=== PATIENT | female | born 1980 | race Caucasian/White ===

== ENCOUNTER 2018-02-21 11:13 | Emergency (ER) | payer BC, OTHER, SELFPAY ==
[2018-02-21] MEDS ORDERED: TETANUS & DIPHTHERIA TOX,ADULT 0.5 ML VIAL ONE (12:12)
--- NOTE | 2018-02-21 12:40 | ER ---
Nurse's Notes [facility] Name: Jaquelin Lomax Age: 37 yrs Sex: Female : 1980 Arrival Date: 02/21/2018 Time: 11:15 Bed 23 Private MD: None, None Diagnosis: Bitten by dog-Left Hand Presentation: 02/21 11:25 Presenting complaint: Patient states: dog bite to the left hand today while at work. sv Transition of care: patient was not received from another setting of care. Onset of symptoms was February 21, 2018. Care prior to arrival: None. 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 sv Dog name is Uche. 11:33 Note Animal control called and stated they would have someone up here. sv 12:00 Risk Assessment: Do you want to hurt yourself or someone else? Patient reports no ss desire to harm self or others. Initial Sepsis Screen: Does the patient meet any 2 criteria? No. Patient's initial sepsis screen is negative. Does the patient have a suspected source of infection? No. Patient's initial sepsis screen is negative. Triage Assessment: 11:29 Bite description: bite sustained to left hand is from animal, was sustained less than sv 30 minutes ago. by a dog, black mouth Cur, animal information: vaccination(s) is unknown. General: Appears in no apparent distress. uncomfortable, Behavior is calm, cooperative. Pain: Complains of pain in left hand Pain currently is 4 out of 10 on a pain scale. Neuro: Level of Consciousness is awake, alert, obeys commands, Oriented to person, place, time, situation, Moves all extremities. Full function Gait is steady. Respiratory: Respiratory effort is even, unlabored, Respiratory pattern is regular, symmetrical. Derm: Skin is normal. 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 - Social history:: Smoking status: Patient uses tobacco products, smokes one pack cigarettes per day. - Ebola Screening: : No symptoms or risks identified at this time. Screenin:00 Abuse screen: Denies threats or abuse. Denies injuries from another. Nutritional ss screening: No deficits noted. Tuberculosis screening: Never had TB. Fall Risk None identified. Assessment: 12:00 General: Appears in no apparent distress. comfortable, Behavior is calm, cooperative, ss Denies fever, feeling ill, fatigue, chills. Pain: Complains of pain in dorsum of left hand Pain currently is 5 out of 10 on a pain scale. Quality of pain is described as aching, tender, Pain began 1 hour ago. Is continuous. Neuro: Level of Consciousness is awake, alert, obeys commands, Oriented to person, place, time, situation. Cardiovascular: Capillary refill < 3 seconds is brisk in bilateral fingers. Respiratory: Airway is patent Trachea midline Respiratory effort is even, unlabored, Respiratory pattern is regular, symmetrical. GI: No signs and/or symptoms were reported involving the gastrointestinal system. : No signs and/or symptoms were reported regarding the genitourinary system. EENT: Eyes Oral mucosa is moist. Throat is clear. Derm: Skin is intact, is healthy with good turgor, Skin is dry, Skin is pink, warm \T\ dry. normal. Derm: Bruising that is dark purple, on dorsum of left hand. Musculoskeletal: Range of motion: intact in all extremities, Swelling present in dorsum of left hand. Injury Description: Laceration sustained to dorsum of left hand is 0.5 to 2.5 cm long, was sustained 30-60 minutes ago. no active bleeding noted at this time. Vital Signs: 11:26 BP 173 / 95; Pulse 76; Resp 18; Temp 97.7; Pulse Ox 99% ; Weight 90.72 kg; Height 5 ft. sv 5 in. (165.10 cm); Pain 4/10; 11:26 Body Mass Index 33.28 (90.72 kg, 165.10 cm) sv ED Course: 11:15 Patient arrived in ED. sb2 11:15 None, None is Private Physician. sb2 11:25 Triage completed. sv 11:26 Arm band placed on. sv 11:48 Sriram Puga PA is PHCP. cp 11:48 Sriram Alvarez MD is Attending Physician. cp 12:00 Shy Carias, RN is Primary Nurse. ss 12:00 Patient has correct armband on for positive identification. Bed in low position. Call ss light in reach. 12:50 No provider procedures requiring assistance completed. Patient did not have IV access ss during this emergency room visit. 12:56 XRAY Hand LEFT 3 View In Process Unspecified. EDMS Administered Medications: 12:07 Drug: Tetanus-Diphtheria Toxoid Adult 0.5 ml {Account Services Analyst: [employer]. Exp: ss 12/06/2019. Lot #: [id number]. } Route: IM; Site: right deltoid; 12:49 Follow up: Response: No adverse reaction ss 12:49 Not Given (Physician Discretion): Augmentin Chewable Tablet 800 mg PO once ss 12:49 Drug: Augmentin 875 mg Route: PO; ss 12:49 Follow up: Response: Medication administered at discharge. ss Outcome: 12:40 Discharge ordered by MD. cp 12:50 Discharged to home ambulatory. ss 12:50 Condition: good 12:50 Discharge instructions given to patient, Instructed on discharge instructions, follow up and referral plans. medication usage, Demonstrated understanding of instructions, follow-up care, medications, Prescriptions given X 2. 12:51 Patient left the ED. Signatures: Dispatcher [employer] Dorinda Phillips, MAYRA NUNEZ Shy Carias, RN RN Sriram Weiner, PA PA Soniya Foreman sb2
--- NOTE | 2018-02-21 12:40 | EDPHYS ---
Physician Documentation [facility] Name: Jaquelin Lomax Age: 37 yrs Sex: Female : 1980 Arrival Date: 02/21/2018 Time: 11:15 Bed 23 Private MD: None, None ED Physician Sriram Alvarez HPI: 02/21 11:55 This 37 yrs old Female presents to ER via Ambulatory with complaints of Dog cp Bite. 11:55 The patient was bitten on the dorsum of left hand, by a dog, at work. Onset: The cp symptoms/episode began/occurred just prior to arrival. Animal information: Patient/Caregiver unable to provide information related to the animal. Animal control has been notified. 11:55 Secondary to the bite the patient reports a puncture wound, that is deep. Associated cp signs and symptoms: Pertinent positives: swelling at site, tenderness, Pertinent negatives: motor deficit. 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 - Social history:: Smoking status: Patient uses tobacco products, smokes one pack cigarettes per day. - Ebola Screening: : No symptoms or risks identified at this time. ROS: 12:00 Constitutional: Negative for body aches, chills, fever, poor PO intake. cp 12:00 Eyes: Negative for injury, pain, redness, and discharge. cp 12:00 ENT: Negative for drainage from ear(s), ear pain, sore throat, difficulty swallowing, difficulty handling secretions. 12:00 Cardiovascular: Negative for chest pain, edema, palpitations. 12:00 Respiratory: Negative for cough, shortness of breath, wheezing. 12:00 Abdomen/GI: Negative for abdominal pain, nausea, vomiting, and diarrhea. 12:00 Skin: Positive for of the dorsum of left hand, dog bite. 12:00 All other systems are negative. Exam: 12:05 Constitutional: The patient appears in no acute distress, alert, awake, non-toxic, well cp developed, well nourished. 12:05 Head/Face: Normocephalic, atraumatic. cp 12:05 Eyes: Periorbital structures: appear normal, Conjunctiva: normal, no exudate, no injection, Lids and lashes: appear normal, bilaterally. 12:05 ENT: External ear(s): are unremarkable, Nose: is normal, Mouth: Lips: moist, Oral mucosa: moist. 12:05 Chest/axilla: Inspection: normal. 12:05 Cardiovascular: Rate: normal. 12:05 Respiratory: the patient does not display signs of respiratory distress, Respirations: normal. 12:05 Abdomen/GI: Exam negative for discomfort, distension, guarding, Inspection: abdomen appears normal. 12:05 Musculoskeletal/extremity: ROM: full active range of motion, in the left hand, Perfusion: the extremity is normally perfused throughout, Sensation intact. Tendon exam: specific tendon testing normal through active and passive range of motion 12:05 Skin: injury, bite(s), deep, of the dorsum of left hand, that can be described as with mild bleeding, mild swelling, ecchymosis. Vital Signs: 11:26 BP 173 / 95; Pulse 76; Resp 18; Temp 97.7; Pulse Ox 99% ; Weight 90.72 kg; Height 5 ft. sv 5 in. (165.10 cm); Pain 4/10; 11:26 Body Mass Index 33.28 (90.72 kg, 165.10 cm) sv MDM: 11:48 Patient medically screened. cp 12:50 Data reviewed: vital signs, nurses notes, radiologic studies, plain films. cp 12:50 Test interpretation: by ED physician or midlevel provider: plain radiologic studies. cp Counseling: I had a detailed discussion with the patient and/or guardian regarding: the historical points, exam findings, and any diagnostic results supporting the discharge/admit diagnosis, radiology results, the need for outpatient follow up, a family practitioner, to return to the emergency department if symptoms worsen or persist or if there are any questions or concerns that arise at home. Special discussion: I discussed in detail with the patient the higher chance of wound infection based on his presenting history. 02/21 11:52 Order name: XRAY Hand LEFT 3 View cp Administered Medications: 12:07 Drug: Tetanus-Diphtheria Toxoid Adult 0.5 ml {Channel Executive: [employer]. Exp: ss 12/06/2019. Lot #: [id number]. } Route: IM; Site: right deltoid; 12:49 Follow up: Response: No adverse reaction ss 12:49 Not Given (Physician Discretion): Augmentin Chewable Tablet 800 mg PO once ss 12:49 Drug: Augmentin 875 mg Route: PO; ss 12:49 Follow up: Response: Medication administered at discharge. ss Disposition: 16:14 Co-signature as Attending Physician, Srirma Alvarez MD I agree with the assessment and afia plan of care. Disposition: 02/21/18 12:40 Discharged to Home. Impression: Bitten by dog - Left Hand. - Condition is Stable. - Discharge Instructions: Animal Bite. - Prescriptions for Augmentin 875- 125 mg Oral Tablet - take 1 tablet by ORAL route every 12 hours for 10 days; 20 tablet. Anaprox DS 550 mg Oral Tablet - take 1 tablet by ORAL route every 12 hours As needed; 20 tablet. - Medication Reconciliation Form, Thank You Letter, Antibiotic Education, Prescription Opioid Use form. - Follow up: Private Physician; When: 48 Hours; Reason: Wound Recheck. - Problem is new. - Symptoms have improved. Signatures: Dispatcher [employer] Dorinda Phillips RN RN sv Anderson, Corey, MD MD cha Smirch, Shelby, RN RN ss Page, Corey, PA PA cp Corrections: (The following items were deleted from the chart) 12:51 12:40 02/21/2018 12:40 Discharged to Home. Impression: Bitten by dog - Left Hand. ss Condition is Stable. Forms are Medication Reconciliation Form, Thank You Letter, Antibiotic Education, Prescription Opioid Use. Follow up: Private Physician; When: 48 Hours; Reason: Wound Recheck. Problem is new. Symptoms have improved. cp
[2018-02-21] MEDS ORDERED: AMOX/K CLAV 875 MG TAB ONE (12:52)
--- NOTE | 2018-02-21 13:05 | RAD REPORT ---
EXAM DESCRIPTION: RAD - Hand Left 3 View - 02/21/2018 12:54 pm CLINICAL HISTORY: Dog bite left hand, location of wound not specified COMPARISON: None. FINDINGS: No fracture, dislocation or periosteal reaction noted. No acute bone or joint finding iden tifiable. Soft tissues over the dorsum of the hand are prominent no air or foreign body seen. IMPRESSION: Negative left hand for bone or joint abnormality. Soft tissue swelling over the dorsum of the hand. No air or foreign body in the soft tissues.
== END 2018-02-21 12:51 | disposition home or self-care (01) ==
LOC: ER 11:13
DX: S61.432A Puncture wound without foreign body of left hand, initial encounter (principal); W54.0XXA Bitten by dog, initial encounter; Y93.89 Activity, other specified; Y92.89 Other specified places as the place of occurrence of the external cause; Y99.8 Other external cause status; Z23 Encounter for immunization; F17.210 Nicotine dependence, cigarettes, uncomplicated
CPT/HCPCS: 90714; 99283

== ENCOUNTER 2018-02-23 12:49 | Inpatient (IN) | payer BC, OTHER, SELFPAY ==
[2018-02-23] MEDS ORDERED: MORPHINE 4 MG/ML SYR ONE (13:22)
[2018-02-23] MEDS ORDERED: ONDANSETRON 4 MG/2 ML VIAL ONE (13:22)
--- NOTE | 2018-02-23 13:31 | EDPHYS ---
Physician Documentation [facility] Name: Jaquelin Lomax Age: 37 yrs Sex: Female : 1980 Arrival Date: 02/23/2018 Time: 12:52 Bed 24 Private MD: None, None ED Physician Clint Stack HPI: 02/23 13:05 This 37 yrs old Female presents to ER via Ambulatory with complaints of Hand jmm Swelling, Hand Pain. 13:05 The patient or guardian reports injury, pain. Onset: The symptoms/episode jmm began/occurred acutely, 2 day(s) ago. Modifying factors: The symptoms are alleviated by nothing, the symptoms are aggravated by movement. Associated signs and symptoms:. This is a 37 year old female with no chronic medical conditions that presents to the ED with with increased swelling and pain to the left hand. 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 Patient has been on oral antibiotics for the past 2 days with increased swelling and pain to the hand. . 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 - Social history:: Smoking status: Patient uses tobacco products, Patient/guardian denies using alcohol. - Ebola Screening: : Patient negative for fever greater than or equal to 101.5 degrees Fahrenheit, and additional compatible Ebola Virus Disease symptoms Patient denies exposure to infectious person Patient denies travel to an Ebola-affected area in the 21 days before illness onset. ROS: 13:05 Constitutional: Negative for fever, chills, and weight loss, Eyes: Negative for injury, jmm pain, redness, and discharge, Cardiovascular: Negative for chest pain, palpitations, and edema, Respiratory: Negative for shortness of breath, cough, wheezing, and pleuritic chest pain. 13:05 MS/extremity: Positive for pain, swelling. 13:05 All other systems are negative. Exam: 13:05 Constitutional: This is a well developed, well nourished patient who is awake, alert, jmm and in no acute distress. Head/Face: atraumatic. Eyes: EOMI, no conjunctival erythema appreciated ENT: Moist Mucus Membranes Neck: Trachea midline, Supple Chest/axilla: Normal chest wall appearance and motion. Cardiovascular: Regular rate and rhythm. No edema appreciated Respiratory: Normal respirations, no respiratory distress appreciated Abdomen/GI: Non distended, soft 13:05 Musculoskeletal/extremity: hand held in passive flexion, pain is elicited on extension, puncture is noted to the dorsum of the left hand, compartments are soft, NVI. 13:05 Skin: swelling is noted to the left hand, induration is apprecaited, TTP. 13:05 Neuro: Orientation: is normal, Mentation: is normal, Memory: is normal. 13:05 Psych: Behavior/mood is pleasant, cooperative. Vital Signs: 12:59 BP 171 / 100; Pulse 81; Resp 18; Temp 99.1(O); Pulse Ox 97% on R/A; Weight 90.72 kg; hj Height 5 ft. 5 in. (165.10 cm); Pain 10/10; 14:46 BP 166 / 94; Pulse 76; Resp 18; Pulse Ox 96% ; tl3 12:59 Body Mass Index 33.28 (90.72 kg, 165.10 cm) MDM: 13:05 Patient medically screened. [facility] 13:20 Data reviewed: vital signs, nurses notes. Counseling: I had a detailed discussion with [facility] the patient and/or guardian regarding: the historical points, exam findings, and any diagnostic results supporting the discharge/admit diagnosis, the need for further work-up and treatment in the hospital. ED course: I discussed the patient with Dr. Hernadez whom accepted the patient. I discussed the patient with Dr. Portillo whom will consult on admission. . 02/23 13:10 Order name: CBC with Diff [facility] 02/23 13:10 Order name: CMP [facility] 02/23 13:10 Order name: Blood Culture Adult (2) [facility] 02/23 13:16 Order name: Hand Left 3 View XRAY [facility] 02/23 13:46 Order name: CBC with Automated Diff; Complete Time: 14:30 EDMS 02/23 13:56 Order name: Comprehensive Metabolic Panel; Complete Time: 14:30 EDMS 02/23 13:10 Order name: Saline Lock; Complete Time: 13:34 [facility] 02/23 14:32 Order name: RAD; Complete Time: 15:39 EDMS Administered Medications: 13:20 Drug: morphine 4 mg Route: IVP; Infused Over: 3 mins; Site: right forearm; tl3 14:48 Follow up: Response: No adverse reaction; Marked relief of symptoms; Pain is decreased tl3 13:20 Drug: Zofran 4 mg Route: IVP; Infused Over: 2 mins; Site: right forearm; tl3 14:48 Follow up: Response: No adverse reaction; Pain is decreased tl3 14:17 Drug: Zosyn 3.375 grams Route: IVPB; Infused Over: 60 mins; Site: right forearm; tl3 Delivery: Primary tubing; 14:47 Follow up: IV Status: Infusion continued upon admission tl3 14:48 Not Given (pain relieved by previous meds): morphine 4 mg IVP once tl3 14:49 Not Given (sent with pt to floor for administration): vancoMYCIN 1 grams IVPB once over tl3 2 hrs Disposition: 18:48 Co-signature as Attending Physician, Clint Stack MD. Disposition: 02/23/18 13:30 Hospitalization ordered by Cheng Hernadez for Observation. Preliminary diagnosis are Cellulitis of the Hand, Failed Outpatient Therapy. - Bed requested for Telemetry/MedSurg (observation). - Status is Observation. tl3 - Condition is Stable. - Problem is new. - Symptoms have worsened. UTI on Admission? No Signatures: Dispatcher [employer] EDMN Jagdeep Bennett PA PA [facility] Placido Navarro RN RN Ashia Gross [facility] Clint Stack MD MD Bernice Russell RN RN tl3 Corrections: (The following items were deleted from the chart) 13:10 12:59 Home Meds: None; [facility] 13:41 13:30 Hospitalization Ordered by Cheng Hernadez DO for Observation. Preliminary [facility] diagnosis is Cellulitis of the Hand; Failed Outpatient Therapy. Bed requested for Telemetry/MedSurg (observation). Status is Observation. Condition is Stable. Problem is new. Symptoms have worsened. UTI on Admission? No. [facility] 13:49 13:41 02/23/2018 13:30 Hospitalization Ordered by Cheng Hernadez DO for Observation. dh3 Preliminary diagnosis is Cellulitis of the Hand; Failed Outpatient Therapy. Bed requested for Telemetry/MedSurg (observation). Status is Observation. Condition is Stable. Problem is new. Symptoms have worsened. UTI on Admission? No. dh3 15:33 13:49 02/23/2018 13:30 Hospitalization Ordered by Cheng Hernadez DO for Observation. tl3 Preliminary diagnosis is Cellulitis of the Hand; Failed Outpatient Therapy. Bed requested for Telemetry/MedSurg (observation). Status is Observation. Condition is Stable. Problem is new. Symptoms have worsened. UTI on Admission? No. dh3
--- NOTE | 2018-02-23 13:31 | ER ---
Nurse's Notes [facility] Name: Jaquelin Lomax Age: 37 yrs Sex: Female : 1980 Arrival Date: 02/23/2018 Time: 12:52 Bed 24 Private MD: None, None Diagnosis: Cellulitis of the Hand;Failed Outpatient Therapy Presentation: 02/23 12:57 Presenting complaint: Patient states: i was here Jayce because i was bitten by a dog; hj now, my L hand is swollen and warm; reports N/V;. Transition of care: patient was not received from another setting of care. Onset of symptoms was February 23, 2018. Risk Assessment: Do you want to hurt yourself or someone else? Patient reports no desire to harm self or others. Initial Sepsis Screen: Does the patient meet any 2 criteria? No. Patient's initial sepsis screen is negative. Does the patient have a suspected source of infection? No. Patient's initial sepsis screen is negative. Care prior to arrival: None. 12:57 Method Of Arrival: Ambulatory 12:57 Acuity: HOANG 3 hj 13:00 Acuity: HOANG 3 iw Triage Assessment: 12:59 General: Appears in no apparent distress. uncomfortable, Behavior is calm, cooperative, hj appropriate for age. Pain: Complains of pain in left hand Pain currently is 10 out of 10 on a pain scale. 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 - Social history:: Smoking status: Patient uses tobacco products, Patient/guardian denies using alcohol. - Ebola Screening: : Patient negative for fever greater than or equal to 101.5 degrees Fahrenheit, and additional compatible Ebola Virus Disease symptoms Patient denies exposure to infectious person Patient denies travel to an Ebola-affected area in the 21 days before illness onset. Screenin:58 Abuse screen: Denies threats or abuse. Denies injuries from another. Nutritional hj screening: No deficits noted. Tuberculosis screening: No symptoms or risk factors identified. Fall Risk None identified. Assessment: 13:06 General: Appears uncomfortable, well groomed, well developed, well nourished, Behavior tl3 is calm, cooperative, appropriate for age. Pain: Complains of pain in left hand Pain currently is 10 out of 10 on a pain scale. Neuro: Level of Consciousness is awake, alert, obeys commands, Oriented to person, place, time, situation, Appropriate for age. Cardiovascular: Patient's skin is warm and dry. Respiratory: Airway is patent Respiratory effort is even, unlabored, Respiratory pattern is regular, symmetrical. GI: No deficits noted. No signs and/or symptoms were reported involving the gastrointestinal system. : No deficits noted. No signs and/or symptoms were reported regarding the genitourinary system. EENT: No deficits noted. No signs and/or symptoms were reported regarding the EENT system. Derm: Wound noted left hand Wound is small puncture amy to dorsal side of hand, hand swollen, no redness noted, but very painful. 14:46 Reassessment: Patient and/or family updated on plan of care and expected duration. Pain tl3 level reassessed. Patient is alert, oriented x 3, equal unlabored respirations, skin warm/dry/pink. report called to MAYRA Sinclair on 4th floor Patient states feeling better. Vital Signs: 12:59 BP 171 / 100; Pulse 81; Resp 18; Temp 99.1(O); Pulse Ox 97% on R/A; Weight 90.72 kg; hj Height 5 ft. 5 in. (165.10 cm); Pain 10/10; 14:46 BP 166 / 94; Pulse 76; Resp 18; Pulse Ox 96% ; tl3 12:59 Body Mass Index 33.28 (90.72 kg, 165.10 cm) ED Course: 12:52 Patient arrived in ED. sb2 12:53 None, None is Private Physician. sb2 12:58 Triage completed. 12:59 Arm band placed on right wrist. 13:01 Jagdeep Bennett PA is PHCP. [facility] 13:01 Clint Stack MD is Attending Physician. [facility] 13:01 Patient has correct armband on for positive identification. Bed in low position. Call light in reach. Side rails up X 1. Adult w/ patient. 13:02 Bernice Russell, RN is Primary Nurse. tl3 13:06 No provider procedures requiring assistance completed. tl3 13:20 Initial lab(s) drawn, by me, sent to lab. First set of blood cultures drawn X-ray(s) tl3 taken. 13:29 Cheng Hernadez DO is Hospitalizing Provider. [facility] 13:34 Pulse ox on. NIBP on. Warm blanket given. tl3 13:34 Inserted saline lock: 20 gauge in right forearm, using aseptic technique. Blood tl3 collected. 14:16 Hand Left 3 View XRAY Sent. tl3 14:17 Blood Culture Adult (2) Sent. tl3 14:46 Patient admitted, IV remains in place. tl3 Administered Medications: 13:20 Drug: morphine 4 mg Route: IVP; Infused Over: 3 mins; Site: right forearm; tl3 14:48 Follow up: Response: No adverse reaction; Marked relief of symptoms; Pain is decreased tl3 13:20 Drug: Zofran 4 mg Route: IVP; Infused Over: 2 mins; Site: right forearm; tl3 14:48 Follow up: Response: No adverse reaction; Pain is decreased tl3 14:17 Drug: Zosyn 3.375 grams Route: IVPB; Infused Over: 60 mins; Site: right forearm; tl3 Delivery: Primary tubing; 14:47 Follow up: IV Status: Infusion continued upon admission tl3 14:48 Not Given (pain relieved by previous meds): morphine 4 mg IVP once tl3 14:49 Not Given (sent with pt to floor for administration): vancoMYCIN 1 grams IVPB once over tl3 2 hrs Outcome: 13:30 Decision to Hospitalize by Provider. [facility] 14:46 Admitted to Tele accompanied by tech, via wheelchair, with chart, Report called to tl3 MAYRA sinclair 14:46 Condition: stable 14:46 Instructed on the need for admit. 15:33 Patient left the ED. tl3 Signatures: Jagdeep Bennett PA PA jmm Williams, Irene, RN Placido Casillas RN Soniya Cummings2 Bernice Russell, RN RN tl3 Corrections: (The following items were deleted from the chart) 13:01 12:59 Pulse 81bpm; Resp 18bpm; Pulse Ox 97% RA; Temp 99.1F Oral; 90.72 kg; Height 5 ft. hj 5 in.; BMI: 33.2; Pain 12/18; 13:10 12:59 Home Meds: None; [facility] 13:33 13:20 Zofran 4 mg IVP in right forearm tl3 tl3 13:41 12:57 Acuity: HOANG 4 [facility]
[2018-02-23 13:43] LABS: Absolute Lymphocytes (CBC) 1.7 K/uL (0.7-4.9); Absolute Monocytes 0.7 K/uL (0.1-1.3); Absolute Neutrophil 5.8 K/uL (1.8-8.0); Basophils % 0.7 % (0-1.3); Eosinophils % 1.4 % (0-4.4); Hematocrit 44.3 % (36.0-45.0); Lymphocytes % 20.6 % (15.3-44.8); MCH 30.7 pg (27.0-35.0); MCV 89.1 fL (80-100); MPV 10.5 fL (7.6-11.3); RBC Red Blood Cell Count 4.97 M/uL (3.86-4.86)
--- NOTE | 2018-02-23 13:43 | P.HP ---
Certification for Inpatient Patient admitted to: Observation With expected LOS: <2 Midnights Patient will require the following post-hospital care: None Practitioner: I am a practitioner with admitting privileges, knowledge of patient current condition, hospital course, and medical plan of care. Services: Services provided to patient in accordance with Admission requirements found in Title 42 Section 412.3 of the Code of Federal Regulations Patient History Date of Service: 02/23/18 Primary Care Provider: None Reason for admission: Dog bite History of Present Illness: 37-year-old female presented to emergency room after a dog bite. 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 Apparently the dog was not well sedated. The 80 lb dog then bit her left hand. They were finally able to get the dog away. Patient had immediate pain and went to the emergency room later that night. Patient was seen and evaluated. X-ray shows edema, no foreign body. Patient was sent home on Augmentin and naproxen. Patient continue to have increasing pain and swelling to the left 10. No fever noted. Some nausea noted. The dog is currently up-to-date with rabies vaccine and is quarantined. In the ER today increased swelling to the left hand noted. Lab pending at this time. Repeat x-rays pending. The patient will be admitted for evaluation by hand surgery with possible surgery. I was consulted to admit the patient for hand surgery and take care of her medical issues. Patient currently stable this time. Patient admits to tobacco use. She recently had a left carpal tunnel surgery in June of this year of the left wrist. Home medications list reviewed: Yes - Past Medical/Surgical History Diabetic: No -: Tobacco abuse -: Left carpal tunnel syndrome, post surgery June 2017 -: Left carpal tunnel surgery left wrist, June 2017 -: x3 Psychosocial/ Personal History: She is . She has 3 children. 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 - Family History Father -: Diabetes - Social History Smoking Status: Heavy Tobacco smoker (>10 cigarettes/day) Counseled patient to stop smoking for: less than 10 minutes Smoking therapy provided: Yes Patient receptive to therapy: Yes Alcohol use: Yes CD- Drugs: No Caffeine use: Yes Place of Residence: Home Review of Systems General: As per HPI Eyes: Unremarkable ENT: Unremarkable Respiratory: Unremarkable Cardiovascular: Unremarkable Gastrointestinal: Nausea, As per HPI Genitourinary: Unremarkable Musculoskeletal: Hand Pain, As per HPI Integumentary: As per HPI Neurological: Unremarkable Lymphatics: Unremarkable Physical Examination - Physical Exam General: Alert, In no apparent distress, Oriented x3, Cooperative HEENT: Atraumatic, Normocephalic, PERRLA, Mucous membr. moist/pink Neck: Supple, No Thyromegaly Respiratory: Clear to auscultation bilaterally, Normal air movement Cardiovascular: Normal pulses, Regular rate/rhythm Gastrointestinal: Normal bowel sounds, Soft and benign, Non-distended, No tenderness, No masses, No rebound, No guarding Musculoskeletal: Other (Swelling to the left hand noted. Bite amy noted on the dorsal aspect of the hand. No significant exudate noted. No significant port noted. Swelling noted to the digits of the hand. Poor hand intermodal customer service. Patient not able to fully extend fingers) Neurological: Normal speech, Normal tone, Normal affect, Abnormal strength (As above) Assessment and Plan - Plan Impression: Left hand cellulitis secondary to dog bite complicated with history of left carpal tunnel syndrome with prior surgery June 2017 Tobacco abuse Plan: Left hand cellulitis secondary to dog bite complicated with history of left carpal tunnel syndrome with prior surgery June 2017: Patient will be admitted. Blood cultures obtained. Will start vancomycin and Zosyn IV. Hand surgery has been consulted by the ER physician. Patient to be NPO after midnight. Hand surgery plans for possible surgical intervention. Will obtain CBC and BMP. Will provide IV fluids. Dog has been quarantined. Daughter is up -to-date with rabies vaccine. Will make sure patient has tetanus up-to-date. Will continue to monitor and assess. Anticipate discharge likely tomorrow after anticipated surgery. Will provide medication for pain. Tobacco abuse: Will provide nicotine patch as needed. Discharge Plan: Home Plan to discharge in: 24 Hours - Advance Directives Does patient have a Living Will: No Does patient have a Durable POA for Healthcare: No - Code Status/Comfort Care Code Status Assessed: Yes (Full code) Time Spent Managing Pts Care (In Minutes): 55
[2018-02-23 13:56] LABS: Albumin 4.1 g/dL (3.4-5.0); Bilirubin Total 0.3 mg/dL (0.2-1.0); Potassium 3.9 mmol/L (3.5-5.1); Protein, Total 7.3 g/dL (6.4-8.2)
[2018-02-23] MEDS ORDERED: PIPER/TAZO/NS 3.375gm 3.375 GM/100 ML BAG ONE (14:13)
[2018-02-23] MEDS ORDERED: VANCOMYCIN 1 GM/250 ML BAG ONE (14:13)
[2018-02-23] MEDS ORDERED: NA CHLORIDE 0.9% 500 ML ONE (14:13)
--- NOTE | 2018-02-23 14:32 | RAD REPORT ---
EXAM DESCRIPTION: RAD - Hand Left 3 View - 02/23/2018 2:19 pm CLINICAL HISTORY: Left hand dog bite, pain and swelling progressive since February 21 COMPARISON: Left hand February 21 FINDINGS: No fracture, dislocation or periosteal reaction noted. No new or progressive bone or joint finding. No foreign body in the soft tissues. Soft tissues over the dorsum of the hand and wrist hav e increased in prominence since February 21. IMPRESSION: Increased soft tissue swelling over the dorsum of the hand and wrist. No acute left hand bone or joint finding.
[2018-02-23] MEDS ORDERED: TRAMADOL HCL 50 MG TAB PO PRN (15:36)
[2018-02-23] MEDS ORDERED: NICOTINE 21 MG/PAT TD PRN (15:36)
[2018-02-23] MEDS ORDERED: ACETAMINOPHEN 500 MG TAB PO PRN (15:36)
[2018-02-23] MEDS ORDERED: ONDANSETRON 4 MG/2 ML VIAL IV PRN (15:36)
[2018-02-23] MEDS: NA CHLORIDE 0.9% 1,000 ML IV SCH (15:57)
[2018-02-23] MEDS: MORPHINE 2 MG/ML SYR IV PRN (16:17)
[2018-02-23] MEDS: VANCOMYCIN 1.75 GM in NA CHLORIDE 0.9% 500 ML IVPB SCH (16:57)
[2018-02-23] MEDS: FAMOTIDINE 20 MG TAB PO SCH (16:57)
[2018-02-23 17:47] LABS: Urine Appearance CLEAR; Urine Bilirubin NEGATIVE (NEG); Urine Blood 2+ (NEG); Urine Color YELLOW; Urine Glucose NEGATIVE (NEG); Urine Protein NEGATIVE (NEG); Urine Urobilinogen 0.2 mg/dL (0.2-1.0); Urine pH 6.5 (5.0-7.0)
[2018-02-23 18:06] LABS: Urine Microscopic Reflex ORDER UMIC
[2018-02-23 18:16] LABS: Urine Bacteria <20 /HPF (<20); Urine RBC <5 /HPF (NONE SEEN)
[2018-02-23 18:17] LABS: Urine Culture Reflex Order NOT NEEDED
[2018-02-23] MEDS: MUPIROCIN 2% OINT 22GM TUBE TOP SCH (22:43)
[2018-02-23] MEDS: HYDROCODONE/APAP 7.5/325 MG TAB PO PRN (22:43)
[2018-02-24] MEDS: PIPER/TAZO/NS 3.375gm 3.375 GM/100 ML BAG IVPB SCH ×3 (00:42→19:27)
[2018-02-24] MEDS: NA CHLORIDE 0.9% 1,000 ML IV SCH ×3 (00:42→21:36)
[2018-02-24 04:12] LABS: Absolute Monocytes 0.6 K/uL (0.1-1.3); Absolute Neutrophil 3.6 K/uL (1.8-8.0); Eosinophils % 3.1 % (0-4.4); Hematocrit 36.8 % (36.0-45.0); Lymphocytes % 30.8 % (15.3-44.8); MCH 30.9 pg (27.0-35.0); MCV 89.7 fL (80-100); MPV 10.7 fL (7.6-11.3); Monocytes % 9.7 % (3.3-12.3)
[2018-02-24 04:23] LABS: Magnesium 2.2 mg/dL (1.8-2.4)
[2018-02-24] MEDS: HYDROCODONE/APAP 7.5/325 MG TAB PO PRN (05:57)
[2018-02-24] MEDS: VANCOMYCIN 1.75 GM in NA CHLORIDE 0.9% 500 ML IVPB SCH ×2 (05:57→16:21)
[2018-02-24] MEDS ORDERED: VANCOMYCIN 1 GM in NA CHLORIDE 0.9% 500 ML IVPB SCH (09:00)
[2018-02-24] MEDS: FAMOTIDINE 20 MG TAB PO SCH (09:19)
[2018-02-24] MEDS: MUPIROCIN 2% OINT 22GM TUBE TOP SCH (09:20)
--- NOTE | 2018-02-24 12:26 | P.PN ---
Subjective Date of Service: 02/24/18 Primary Care Provider: None Chief Complaint: Dog bite Subjective: Improving (Swelling to the left hand improved.) Physical Examination - Vital Signs Temperature: 97.8 F Blood Pressure: 131/76 Pulse: 57 Respirations: 16 Pulse Ox (%): 96 - Physical Exam General: Alert, In no apparent distress, Oriented x3, Cooperative HEENT: Atraumatic Neck: Supple Respiratory: Clear to auscultation bilaterally, Normal air movement Cardiovascular: Normal pulses, Regular rate/rhythm Gastrointestinal: Normal bowel sounds, Soft and benign, Non-distended Integumentary: Other (Swelling to the left hand slightly improved. 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.) - Studies Laboratory Data (last 24 hrs) 02/23/18 13:20: Sodium 139, Potassium 3.9, BUN 9, Creatinine 0.80, Glucose 92, Total Bilirubin 0.3, AST 9 L, ALT 15, Alkaline Phosphatase 75 02/23/18 13:20: WBC 8.4, Hgb 15.2 H, Hct 44.3, Plt Count 210 Medications List Reviewed: Yes Assessment & Plan Discharge Plan: Transfer Plan to discharge in: 24 Hours Physician Review Additional Text: Impression: Left hand cellulitis secondary to dog bite complicated with history of left carpal tunnel syndrome with prior surgery June 2017 Tobacco abuse Plan: Left hand cellulitis secondary to dog bite complicated with history of left carpal tunnel syndrome with prior surgery June 2017: Patient remained stable. Will continue with IV vancomycin and Zosyn. Case discussed at length with hand/plastic surgery. Surgery reports that he is not able to have operating time today due to current OR schedule. Surgery is considering transfer to another facility to provide surgery. I will discuss case with case management and nurse food service kitchen supervisor to see if surgery can be accommodated today. If not, patient will likely be transferred. Surgery to get in contact with me to determine what the plan of care will be. Tobacco abuse: Will provide nicotine patch as needed. Time Spent Managing Pts Care (In Minutes): 55
[2018-02-24] MEDS ORDERED: MIDAZOLAM HCL 2 MG/2 ML INJ ONE (13:14)
[2018-02-24] MEDS ORDERED: PROPOFOL 200 MG/20 ML VIAL IV ONE (13:14)
[2018-02-24] MEDS ORDERED: FENTANYL CITR 100 MCG/2 ML ONE (13:14)
[2018-02-24] MEDS ORDERED: Ringers Lactate 1,000 ML IV ONE (13:20)
[2018-02-24] MEDS ORDERED: LIDOCAINE 1% MPF 5 ML VIAL ONE (13:30)
[2018-02-24] MEDS ORDERED: KETOROLAC 30 MG/ML INJ ONE (13:47)
[2018-02-24] MEDS: MEPERIDINE HCL 25 MG/0.5 ML ONE ×4 (13:56→14:19)
[2018-02-24] MEDS: HYDROCODONE/APAP 5/325 MG TAB PO PRN (22:03)
--- NOTE | 2018-02-25 00:50 | OP ---
Surgeon: Omar Rebolledo MD Preoperative Diagnosis: Dog bite to left hand. Postoperative Diagnosis: Dog bite to left hand. Procedure: Debridement of skin, subcutaneous tissue, and muscle. Anesthesia: General. Procedure In Detail: After satisfactory induction of general anesthesia, the left arm was prepped wi th Betadine scrub and Betadine paint. Dry sterile drapes were applied in the usual manner. The arm was elevated. Tourniquet was inflated to 250 mmHg. Hand was placed on [place] table. Elliptical in cision was made over the entrance area. Dissection proceeded down. The dorsal interosseous between the index and middle with lacerated portion of the muscle were debrided. The wound was jet lavaged, irrigated with 3 L of dilute Betadine solution after cultures were taken. Tourniquet was released. Electrocautery was used for hemostasis. Wound was packed with Nu Gauze and Kerlix. The patient alexia rated the procedure well and returned to Recovery. IVETH/JOEY Voice ID: [id number] Report ID: [id number]
[2018-02-25] MEDS: PIPER/TAZO/NS 3.375gm 3.375 GM/100 ML BAG IVPB SCH ×3 (01:06→16:27)
[2018-02-25] MEDS: MORPHINE 2 MG/ML SYR IV PRN ×2 (01:36→13:51)
[2018-02-25] MEDS: VANCOMYCIN 1.75 GM in NA CHLORIDE 0.9% 500 ML IVPB SCH ×2 (05:33→16:27)
[2018-02-25] MEDS: NA CHLORIDE 0.9% 1,000 ML IV SCH ×2 (07:36→16:26)
[2018-02-25] MEDS: FAMOTIDINE 20 MG TAB PO SCH (08:21)
[2018-02-25] MEDS: MUPIROCIN 2% OINT 22GM TUBE TOP SCH (09:00)
[2018-02-25] MEDS: HYDROCODONE/APAP 5/325 MG TAB PO PRN (09:51)
--- NOTE | 2018-02-25 17:26 | P.PN ---
Subjective Date of Service: 02/25/18 Primary Care Provider: None Chief Complaint: Dog bite Patient seen and examined at bedside with RN. Chart reviewed. Case discussed with plastic surgery. Currently patient is getting dressing changes every 12 hr. Received tetanus shot in the ER. Review of Systems 10-point ROS is otherwise unremarkable Physical Examination - Vital Signs Temperature: 98.3 F Blood Pressure: 141/82 Pulse: 69 Respirations: 16 Pulse Ox (%): 97 - Physical Exam General: Alert, In no apparent distress HEENT: Atraumatic, PERRLA, EOMI Neck: Supple, JVD not distended Respiratory: Clear to auscultation bilaterally, Normal air movement Cardiovascular: Regular rate/rhythm, Normal S1 S2 Gastrointestinal: Normal bowel sounds, No tenderness Musculoskeletal: Erythema, Tenderness, Warmth Integumentary: No rashes Neurological: Normal speech, Normal tone, Normal affect Lymphatics: No axilla or inguinal lymphadenopathy - Studies Microbiology Data (last 24 hrs): 02/24/18 14:08 Wound - Left Hand Gram Stain - Final Medications List Reviewed: Yes Assessment And Plan Discharge Plan: Home Plan to discharge in: Greater than 2 days - Code Status/Comfort Care Code Status Assessed: Yes Physician Review Additional Text: Assessment/ Plan: Left hand cellulitis secondary to dog bite complicated with history of left carpal tunnel syndrome with prior surgery June 2017: -status post incision and drainage with plastic surgery at this time POD 1. -ontinue with IV vancomycin and Zosyn. -wound cultures are pending at this time -dressing changes every 12 hr -pain management with IV morphine -will continue to monitor closely Tobacco abuse: -Will provide nicotine patch as needed. Disposition: Pending clinical improvement at this time. Will follow up with plastic surgery regarding further incision and drainage. Continue with IV antibiotics until then. Critical Care: No
[2018-02-26] MEDS: PIPER/TAZO/NS 3.375gm 3.375 GM/100 ML BAG IVPB SCH ×3 (01:11→16:29)
[2018-02-26] MEDS: NA CHLORIDE 0.9% 1,000 ML IV SCH ×3 (03:36→23:36)
[2018-02-26] MEDS: VANCOMYCIN 1.75 GM in NA CHLORIDE 0.9% 500 ML IVPB SCH ×2 (05:24→20:45)
[2018-02-26] MEDS: FAMOTIDINE 20 MG TAB PO SCH (08:47)
[2018-02-26] MEDS: MUPIROCIN 2% OINT 22GM TUBE TOP SCH (08:54)
--- NOTE | 2018-02-26 13:27 | P.PN ---
Subjective Date of Service: 02/26/18 Primary Care Provider: None Chief Complaint: Dog bite Patient seen and examined at bedside with RN. Chart reviewed. Case discussed with plastic surgery. Currently patient is getting dressing changes every 12 hr. Received tetanus shot in the ER.NPO after midnight for surgery osvaldo Review of Systems 10-point ROS is otherwise unremarkable Physical Examination - Vital Signs Temperature: 98.1 F Blood Pressure: 145/85 Pulse: 76 Respirations: 16 Pulse Ox (%): 98 - Physical Exam General: Alert, In no apparent distress HEENT: Atraumatic, PERRLA, EOMI Neck: Supple, JVD not distended Respiratory: Clear to auscultation bilaterally, Normal air movement Cardiovascular: Regular rate/rhythm, Normal S1 S2 Gastrointestinal: Normal bowel sounds, No tenderness Musculoskeletal: Erythema, Tenderness, Warmth Integumentary: No rashes Neurological: Normal speech, Normal tone, Normal affect Lymphatics: No axilla or inguinal lymphadenopathy - Studies Microbiology Data (last 24 hrs): 02/24/18 14:08 Wound - Left Hand Gram Stain - Final Medications List Reviewed: Yes Assessment And Plan Discharge Plan: Home Plan to discharge in: 48 Hours - Code Status/Comfort Care Code Status Assessed: Yes Physician Review Additional Text: Assessment/ Plan: Left hand cellulitis secondary to dog bite complicated with history of left carpal tunnel syndrome with prior surgery June 2017: -status post incision and drainage with plastic surgery at this time POD 2. -ontinue with IV vancomycin and Zosyn. -wound cultures are pending at this time -dressing changes every 12 hr -pain management with IV morphine -will continue to monitor closely -plan for OR osvaldo for closure Tobacco abuse: -Will provide nicotine patch as needed. Disposition: Pending clinical improvement at this time. Planned for closure tomorrow. Continue with IV antibiotics until then. Critical Care: No
--- NOTE | 2018-02-26 18:26 | PN ---
The patient's wound is open intact plan of debridement and closure, and she will be discha rged after that. IVETH/JOEY Voice ID: [id number] Report ID: [id number]
[2018-02-27] MEDS: MORPHINE 2 MG/ML SYR IV PRN (02:56)
[2018-02-27] MEDS: PIPER/TAZO/NS 3.375gm 3.375 GM/100 ML BAG IVPB SCH ×2 (02:56→11:00)
[2018-02-27] MEDS: VANCOMYCIN 1.75 GM in NA CHLORIDE 0.9% 500 ML IVPB SCH (06:57)
[2018-02-27] MEDS ORDERED: Ringers Lactate 1,000 ML IV ONE (08:40)
[2018-02-27] MEDS: FAMOTIDINE 20 MG TAB PO SCH ×2 (09:00→13:08)
[2018-02-27] MEDS: MUPIROCIN 2% OINT 22GM TUBE TOP SCH (09:00)
[2018-02-27] MEDS: NA CHLORIDE 0.9% 1,000 ML IV SCH (09:36)
[2018-02-27] MEDS ORDERED: FENTANYL CITR 100 MCG/2 ML ONE (10:43)
[2018-02-27] MEDS ORDERED: PROPOFOL 200 MG/20 ML VIAL IV ONE (10:43)
[2018-02-27] MEDS ORDERED: LIDOCAINE 2% MPF 5 ML VIAL ONE (10:43)
[2018-02-27] MEDS ORDERED: MIDAZOLAM HCL 2 MG/2 ML INJ ONE (10:43)
[2018-02-27] MEDS ORDERED: ONDANSETRON 4 MG/2 ML VIAL ONE (10:47)
[2018-02-27] MEDS: MEPERIDINE HCL 50 MG/ML AMP ONE ×2 (11:53→11:59)
[2018-02-27] MEDS: HYDROCODONE/APAP 5/325 MG TAB PO PRN (15:25)
--- NOTE | 2018-02-27 16:50 | P.DS ---
Admission Date: 02/24/18 Discharge Date: 02/27/18 Primary Care Provider: None Disposition: ROUTINE DISCHARGE Discharge Condition: GOOD Reason for Admission: Dog bite Consultations: Plastic Surgeon Procedures: I&D - Problems (1) Cellulitis of left hand Onset Date: 02/24/18 Status: Acute (2) Dog bite Onset Date: 02/25/18 Status: Acute Qualifiers: Encounter type: initial encounter Qualified Code(s): W54.0XXA - Bitten by dog, initial encounter (3) Tobacco abuse Onset Date: 02/25/18 Status: Acute Brief History of Present Illness: 37-year-old female presented to emergency room after a dog bite. 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 Apparently the dog was not well sedated. The 80 lb dog then bit her left hand. They were finally able to get the dog away. Patient had immediate pain and went to the emergency room later that night. Patient was seen and evaluated. X-ray shows edema, no foreign body. Patient was sent home on Augmentin and naproxen. Patient continue to have increasing pain and swelling to the left 10. No fever noted. Some nausea noted. The dog is currently up-to-date with rabies vaccine and is quarantined. In the ER today increased swelling to the left hand noted. Lab pending at this time. Repeat x-rays pending. The patient will be admitted for evaluation by hand surgery with possible surgery. I was consulted to admit the patient for hand surgery and take care of her medical issues. Patient currently stable this time. Patient admits to tobacco use. She recently had a left carpal tunnel surgery in June of this year of the left wrist. 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 Patient was seen here by plastic surgeon who recommended the patient will need I and D.. Patient was taken to the OR for incision and drainage. Patient had dressing changes after that every 8 hr here. Once adequate granulation tissue was noted and no purulent discharge was noted. Patient was taken back for closure of the wound. After the closure of the wound. Patient then was discharged home under stable condition. Wound cultures were done which was negative for any bacterial growth. Patient was discharged home on Bactrim DS for her dog bite. Patient was also given tetanus shot in the ER. Patient stated that the dog was up to date on her vaccine. Patient was asked to follow up with plastic surgery in about 1-2 weeks post discharge Vital Signs/Physical Exam: Temp Pulse Resp BP Pulse Ox 98 F 68 18 150/87 H 97 02/27/18 11:59 02/27/18 11:59 02/27/18 11:59 02/27/18 11:59 02/27/18 08:00 General: Alert, In no apparent distress HEENT: Atraumatic, PERRLA, EOMI Neck: Supple, JVD not distended Respiratory: Clear to auscultation bilaterally, Normal air movement Cardiovascular: Regular rate/rhythm, Normal S1 S2 Gastrointestinal: Normal bowel sounds, No tenderness Musculoskeletal: Erythema, Tenderness, Warmth, Other (Of the left hand) Integumentary: No rashes Neurological: Normal speech, Normal tone, Normal affect Lymphatics: No axilla or inguinal lymphadenopathy Laboratory Data at Discharge: WBC 6.5 K/uL (4.3-10.9) D 02/24/18 03:45 Hgb 12.7 g/dL (12.0-15.0) D 02/24/18 03:45 Hct 36.8 % (36.0-45.0) D 02/24/18 03:45 Plt Count 181 K/uL (152-406) 02/24/18 03:45 Sodium 142 mmol/L (136-145) 02/24/18 03:45 Potassium 4.0 mmol/L (3.5-5.1) 02/24/18 03:45 BUN 11 mg/dL (7-18) 02/24/18 03:45 Creatinine 0.80 mg/dL (0.55-1.3) 02/26/18 16:19 Glucose 92 mg/dL (74-106) 02/24/18 03:45 Magnesium 2.2 mg/dL (1.8-2.4) 02/24/18 03:45 Total Bilirubin 0.3 mg/dL (0.2-1.0) 02/23/18 13:20 AST 9 U/L (15-37) L 02/23/18 13:20 ALT 15 U/L (12-78) 02/23/18 13:20 Alkaline Phosphatase 75 U/L (45-117) 02/23/18 13:20 Home Medications: Codeine/APAP [Tylenol #3*] 1 tab PO Q4HP PRN 02/23/18 Sulfamethoxazole/Trimethoprim [Bactrim Ds Tablet] 1 each PO BID #14 tablet 02/27 New Medications: Sulfamethoxazole/Trimethoprim [Bactrim Ds Tablet] 1 each PO BID #14 tablet Patient Discharge Instructions: Please f.u with Dr Rebolledo and PCP in 1 to 2 week post discharge. New medication. Bactrim DS 1 Tab BID for 14 days Diet: Regular Activity: Ad lay Followup: Omar Rebolledo MD [ACTIVE - CAN ADMIT] - 1 Week Ronald Ellison DO [ACTIVE - CAN ADMIT] -
--- NOTE | 2018-02-27 22:06 | OP ---
Surgeon: Omar Rebolledo MD Preoperative Diagnosis: Open wound, left hand. Postoperative Diagnose: Open wound, left hand. Procedure: Debridement of skin, subcutaneous tissue, flap closure. Anesthesia: General. Procedure In Detail: After satisfactory induction of general anesthesia, left arm was prepped with B etadine scrub, Betadine paint. Dry sterile drape was applied in usual manner. Arm was elevated, exs anguinated and Esmarch. Tourniquet was inflated to 250 mmHg. Hand was placed on [place] table. Ski n and subcutaneous tissue were debrided with scalpel, forceps, and curette. Area of muscle laceratio n was inspected. Jet lavage was performed and then tourniquet released. Electrocautery was used for hemostasis. Flaps were undermined, advanced, closed with 4-0 prolene vertical mattress and simple s utures. Dressed with Xeroform, 2 inch Haresh, and Kerlix. The patient tolerated the procedure well a nd returned to Recovery. IVETH/JOEY Voice ID: [id number] Report ID: [id number]
== END 2018-02-27 15:48 | disposition home or self-care (01) | DRG 577 ==
LOC: ER 12:49 → ERHOLD 13:32 → 4TH 14:53 → OBSVTOIN 02-24 18:22
PROVIDERS: ADMIT Family Medicine; ATTEND Family Medicine
PROC: 0KDD0ZZ Extraction of Left Hand Muscle, Open Approach (ICD-10-PCS; principal; 2018-02-24 13:30)
PROC: 0HXGXZZ Transfer Left Hand Skin, External Approach (ICD-10-PCS; 2018-02-27)
PROC: 0JDK0ZZ Extraction of Left Hand Subcutaneous Tissue and Fascia, Open Approach (ICD-10-PCS; 2018-02-27)
DX: S61.452A Open bite of left hand, initial encounter (principal); L03.114 Cellulitis of left upper limb; W54.0XXA Bitten by dog, initial encounter; Y93.F9 Activity, other caregiving; Y92.89 Other specified places as the place of occurrence of the external cause; F17.210 Nicotine dependence, cigarettes, uncomplicated
CPT/HCPCS: 36415; 80048; 80053; 80202; 81003; 81015; 81025; 82565; 83735; 84145; 85025; 87040; 87070; 87075; 87205; 88304; 96365; 96375; 99285; G0378; J2175; J2250; J2270; J2405; J2543; J2704; J3010; J3370; J7030

== ENCOUNTER 2021-10-05 12:33 | Emergency (ER) | payer BC, OTHER ==
[2021-10-05 13:49] LABS: Urine Blood Negative (Negative); Urine Glucose Negative (Negative); Urine Protein Negative (Negative); Urine pH 6.5 (5.0-7.0)
[2021-10-05] MEDS ORDERED: ONDANSETRON 4 MG/2 ML VIAL ONE (14:14)
[2021-10-05] MEDS ORDERED: MORPHINE 4 MG/ML SYR ONE ×2 (14:14→16:12)
[2021-10-05] MEDS ORDERED: NA CHLORIDE 0.9% 1,000 ML ONE (14:15)
[2021-10-05 14:39] LABS: Absolute Lymphocytes (CBC) 1.9 K/uL (0.7-4.9); Lymphocytes % 13.3 % (15.3-44.8); MCV 80.1 fL (80-100); MPV 8.7 fL (7.6-11.3); RBC Red Blood Cell Count 4.62 M/uL (3.86-4.86)
[2021-10-05 14:53] LABS: Albumin 3.7 g/dL (3.4-5.0); Bilirubin Total 0.3 mg/dL (0.2-1.0); Potassium 3.8 mmol/L (3.5-5.1); Protein, Total 7.1 g/dL (6.4-8.2)
--- NOTE | 2021-10-05 15:30 | RAD REPORT ---
EXAM DESCRIPTION: CT - Abdomen Pelvis W Contrast - 10/05/2021 3:14 pm CLINICAL HISTORY: RLQ abdominal pain COMPARISON: No comparisons TECHNIQUE: Biphasic, helical CT imaging of the abdomen and pelvis was performed following 100 ml non -ionic IV contrast. No oral contrast administered. All CT scans are performed using dose optimization technique as appropriate and may include automated exposure control or mA/KV adjustment according to patient size. FINDINGS: No suspicious findings in the lung bases. The liver, spleen, and pancreas show no suspicious findings. Gallbladder and biliary tree are also wi thout suspicious finding. Symmetric renal function is seen with no hydronephrosis or suspicious renal mass. No pyelonephritis o r acute parenchymal process. No bladder abnormalities. No adrenal abnormalities. Uterus and ovaries s how no suspicious findings. Stomach and small bowel are unremarkable. No appendicitis findings. From cecum to the splenic flexure no acute colon finding seen. Prominent diverticulosis of the descending colon. Patient has very pron ounced diverticulosis of the sigmoid colon. There is a 5 centimeter segment of mid sigmoid colon show ing wall thickening and edema. There is stranding in the adjacent fat. No extravasation of bowel cont ent or extraluminal free air. Trace amounts of free fluid in the dependent portion of the pelvis. No pneumatosis. No hernia, mass or bulky lymphadenopathy. No suspicious bony findings. IMPRESSION: Moderate severity sigmoid diverticulitis. No abscess, free air or surgically emergent complication.
--- NOTE | 2021-10-05 15:48 | ER ---
Nurse's Notes [facility] Name: Jaquelin Lomax Age: 41 yrs Sex: Female : 1980 Arrival Date: 10/05/2021 Time: 12:37 Bed 13 Private MD: Ronald Ellison Diagnosis: Diverticulitis of large intestine without perforation or abscess without bleeding Presentation: 10/05 13:06 Chief complaint: Patient states: I've been having abdominal pain for the last three iw weeks and today it got to the point where I had to go to urgent care and they sent me here to make sure that I do not have appendicitis. Coronavirus screen: At this time, the client does not indicate any symptoms associated with coronavirus-19. Ebola Screen: No symptoms or risks identified at this time. Initial Sepsis Screen: Does the patient meet any 2 criteria? No. Patient's initial sepsis screen is negative. Does the patient have a suspected source of infection? No. Patient's initial sepsis screen is negative. Risk Assessment: Do you want to hurt yourself or someone else? Patient reports no desire to harm self or others. Onset of symptoms was September 21, 2021. Care prior to arrival: urgent care. 13:06 Method Of Arrival: Ambulatory iw 13:06 Acuity: HOANG 3 iw Triage Assessment: 13:10 General: Appears in no apparent distress. uncomfortable, well groomed, well developed, iw Behavior is calm, cooperative, appropriate for age. Pain: Complains of pain in right lower quadrant and left lower quadrant Pain radiates to right upper quadrant and left upper quadrant Pain currently is 10 out of 10 on a pain scale. Quality of pain is described as sharp, Pain began 2 weeks ago Is intermittent. EENT: No deficits noted. No signs and/or symptoms were reported regarding the EENT system. Oral mucosa is moist. Neuro: No deficits noted. Cardiovascular: No deficits noted. Respiratory: No deficits noted. GI: Abdomen is round non-distended, Abdomen is tender to palpation X 4 quads. Reports lower abdominal pain, Patient currently denies bloody stool, nausea, vomiting. : No deficits noted. No signs and/or symptoms were reported regarding the genitourinary system. Denies burning with urination, inability to void, urinary frequency, vaginal bleeding, vaginal itching. Derm: No deficits noted. No signs and/or symptoms reported regarding the dermatologic system. Musculoskeletal: No deficits noted. No signs and/or symptoms reported regarding the musculoskeletal system. 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 - Social history:: Smoking status: Patient reports use of chewing tobacco. Patient/guardian denies using. Screenin:15 Abuse screen: Denies threats or abuse. Denies injuries from another. Nutritional bp screening: No deficits noted. Tuberculosis screening: No symptoms or risk factors identified. Fall Risk None identified. Assessment: 13:11 Reassessment: PA at bedside to assess. iw 15:25 Reassessment: No changes from previously documented assessment. Patient and/or family bp updated on plan of care and expected duration. Pain level reassessed. GI: Bowel sounds present X 4 quads. 17:10 Reassessment: PT D/C HOME AMBULATORY WITH FAMILY. bp Vital Signs: 13:04 BP 140 / 69; Pulse 86; Resp 18; Temp 99.4(TE); Pulse Ox 98% on R/A; Weight 83.46 kg iw (R); Height 5 ft. 5 in. (165.10 cm); Pain 10/10; 15:25 BP 140 / 89; Pulse 58; Resp 16; Pulse Ox 99% ; bp 17:10 BP 125 / 80; Pulse 66; Resp 16; Pulse Ox 97% ; bp 13:04 Body Mass Index 30.62 (83.46 kg, 165.10 cm) iw ED Course: 12:37 Patient arrived in ED. am2 12:37 Ronald Ellison, DO is Private Physician. am2 13:04 Arm band placed on right wrist. iw 13:08 Triage completed. iw 13:10 Zach Locke NP is PHCP. pm1 13:10 Sriram Alvarez MD is Attending Physician. pm1 14:00 Martin Nagy, MAYRA is Primary Nurse. bp 14:06 Urine collected: clean catch specimen, clear. bm7 14:15 Patient has correct armband on for positive identification. Bed in low position. Call bp light in reach. Side rails up X2. 14:15 Inserted saline lock: 20 gauge in right antecubital area, using aseptic technique. bp Blood collected. 15:16 CT Abd/Pelvis - IV Contrast Only In Process Unspecified. EDMS 17:10 No provider procedures requiring assistance completed. IV discontinued, intact, bp bleeding controlled, No redness/swelling at site. Pressure dressing applied. Administered Medications: 14:15 Drug: NS 0.9% 1000 ml Route: IV; Rate: 1 bolus; Site: right antecubital; bp 14:15 Drug: morphine 4 mg Route: IVP; Infused Over: 4 mins; Site: right antecubital; bp 15:52 Follow up: Response: No adverse reaction bp 14:15 Drug: Zofran (Ondansetron) 4 mg Route: IVP; Site: right antecubital; bp 15:52 Follow up: Response: No adverse reaction bp 16:00 Drug: Flagyl (metroNIDAZOLE) 500 mg Volume: 100 ml; Route: IVPB; Rate: 200 ml/hr; bp Infused Over: 30 mins; Site: right antecubital; 17:10 Follow up: IV Status: Completed infusion; IV Intake: 200ml bp 16:00 Drug: Cipro (ciprofloxacin) 500 mg Route: PO; bp 17:10 Follow up: Response: No adverse reaction bp 16:00 Drug: morphine 4 mg Route: IVP; Infused Over: 4 mins; Site: right antecubital; bp 17:10 Follow up: Response: No adverse reaction bp Medication: 17:10 VIS not applicable for this client. bp Intake: 17:10 IV: 200ml; Total: 200ml. bp Outcome: 15:47 Discharge ordered by MD. pm1 17:10 Discharged to home ambulatory, with family. bp 17:10 Condition: stable 17:10 Discharge instructions given to patient, Instructed on discharge instructions, follow up and referral plans. medication usage, Demonstrated understanding of instructions, follow-up care, medications, Prescriptions given X 3. 17:12 Patient left the ED. bp Signatures: Dispatcher [employer] EDMS Fabienne Montilla RN RN iw Zach Locke NP EMPLOYEE HEALTH NURSE pm1 Janine Villar am2 Martin Nagy RN RN bp Komal Sampson RN RN bm7
--- NOTE | 2021-10-05 15:48 | EDPHYS ---
Physician Documentation [facility] Name: Jaquelin Lomax Age: 41 yrs Sex: Female : 1980 Arrival Date: 10/05/2021 Time: 12:37 Bed 13 Private MD: [facility] ED Physician Sriram Alvarez HPI: 10/05 13:12 This 41 yrs old Female presents to ER via Ambulatory with complaints of Abdominal Pain. pm1 13:12 The patient presents with abdominal pain right lower quadrant. Onset: The pm1 symptoms/episode began/occurred On and off for the past 3 weeks worse since last night. The symptoms do not radiate. Associated signs and symptoms: Pertinent negatives: nausea, vomiting, and diarrhea, chest pain, dysuria, fever, shortness of breath. The symptoms are described as achy, sharp. Modifying factors: The symptoms are alleviated by Initially resolved with Metamucil at onset of pain 3 weeks ago. the symptoms are aggravated by nothing. Severity of pain: in the emergency department the pain. The patient has not experienced similar symptoms in the past. The patient has been recently seen at an urgent care, just prior to arrival, for similar complaints, and was sent to the [facility] Emergency Department for further evaluation. 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 - Social history:: Smoking status: Patient reports use of chewing tobacco. Patient/guardian denies using. ROS: 13:12 Constitutional: Negative for fever, chills, and weight loss, Cardiovascular: Negative pm1 for chest pain, palpitations, and edema, Respiratory: Negative for shortness of breath, cough, wheezing, and pleuritic chest pain. 13:12 Back: Negative for injury and pain, : Negative for injury, bleeding, discharge, and swelling, MS/Extremity: Negative for injury and deformity, Skin: Negative for injury, rash, and discoloration, Neuro: Negative for headache, weakness, numbness, tingling, and seizure. 13:12 Abdomen/GI: Positive for abdominal pain, Negative for nausea, vomiting, and diarrhea. 13:12 All other systems are negative. Exam: 14:32 Constitutional: This is a well developed, well nourished patient who is awake, alert, pm1 and in no acute distress. Head/Face: Normocephalic, atraumatic. 14:32 Back: No spinal tenderness. No costovertebral tenderness. Full range of motion. Skin: Warm, dry with normal turgor. Normal color with no rashes, no lesions, and no evidence of cellulitis. MS/ Extremity: Pulses equal, no cyanosis. Neurovascular intact. Full, normal range of motion. 14:32 Eyes: Exam is negative for acute changes, Extraocular movements: no acute changes, Conjunctiva: no acute changes, no injection. 14:32 ENT: Exam is negative for acute changes, Mouth: no acute changes, Lips: normal, moist, Oral mucosa: normal, pink and intact, moist. 14:32 Cardiovascular: Exam negative for acute changes, Rate: normal, Rhythm: regular, Pulses: no pulse deficits are appreciated. 14:32 Respiratory: Exam negative for acute changes, respiratory distress, shortness of breath. 14:32 Abdomen/GI: Inspection: abdomen appears normal, Palpation: soft, in all quadrants, mild abdominal tenderness, in the suprapubic area, right lower quadrant and left lower quadrant. 14:32 Neuro: Exam negative for acute changes, Orientation: is normal, Mentation: is normal, Motor: is normal, moves all fours. Vital Signs: 13:04 BP 140 / 69; Pulse 86; Resp 18; Temp 99.4(TE); Pulse Ox 98% on R/A; Weight 83.46 kg iw (R); Height 5 ft. 5 in. (165.10 cm); Pain 10/10; 15:25 BP 140 / 89; Pulse 58; Resp 16; Pulse Ox 99% ; bp 17:10 BP 125 / 80; Pulse 66; Resp 16; Pulse Ox 97% ; bp 13:04 Body Mass Index 30.62 (83.46 kg, 165.10 cm) iw MDM: 13:11 Data reviewed: vital signs. Data interpreted: Pulse oximetry: on room air is 98 %. pm1 Interpretation: normal. 13:15 Patient medically screened. pm1 14:58 Medication response: morphine markedly relieved the patient's pain. Symptoms have pm1 improved. 15:43 ED course: Patient without nausea vomiting or diarrhea. Negative for fever. Patient pm1 reports she is able to eat and drink without any difficulties. Also reports regular bowel movements. Shared decision making with patient p.o. antibiotics and clear liquid diet at home versus admission today and educated on return precautions. 15:44 Counseling: I had a detailed discussion with the patient and/or guardian regarding: the pm1 historical points, exam findings, and any diagnostic results supporting the discharge/admit diagnosis, lab results, radiology results, the need for outpatient follow up, GI for colonoscopy post resolution of her diverticulitis, to return to the emergency department if symptoms worsen or persist or if there are any questions or concerns that arise at home. 10/05 13:11 Order name: CBC with Diff; Complete Time: 14:57 pm1 10/05 13:11 Order name: CMP; Complete Time: 14:57 pm1 10/05 13:11 Order name: Lipase; Complete Time: 14:57 pm1 10/05 13:11 Order name: CT Abd/Pelvis - IV Contrast Only; Complete Time: 15:33 pm1 10/05 13:50 Order name: Urine Dipstick-Ancillary; Complete Time: 14:00 EDMS 10/05 13:51 Order name: Urine --Ancillary (enter results); Complete Time: 14:26 em1 10/05 13:11 Order name: IV Saline Lock; Complete Time: 14:23 pm1 10/05 13:11 Order name: Labs collected and sent; Complete Time: 14:23 pm1 10/05 13:11 Order name: Urine Dipstick-Ancillary (obtain specimen); Complete Time: 14:01 pm1 10/05 13:11 Order name: Urine Test (obtain specimen); Complete Time: 14:01 pm1 Administered Medications: 14:15 Drug: NS 0.9% 1000 ml Route: IV; Rate: 1 bolus; Site: right antecubital; bp 14:15 Drug: morphine 4 mg Route: IVP; Infused Over: 4 mins; Site: right antecubital; bp 15:52 Follow up: Response: No adverse reaction bp 14:15 Drug: Zofran (Ondansetron) 4 mg Route: IVP; Site: right antecubital; bp 15:52 Follow up: Response: No adverse reaction bp 16:00 Drug: Flagyl (metroNIDAZOLE) 500 mg Volume: 100 ml; Route: IVPB; Rate: 200 ml/hr; bp Infused Over: 30 mins; Site: right antecubital; 17:10 Follow up: IV Status: Completed infusion; IV Intake: 200ml bp 16:00 Drug: Cipro (ciprofloxacin) 500 mg Route: PO; bp 17:10 Follow up: Response: No adverse reaction bp 16:00 Drug: morphine 4 mg Route: IVP; Infused Over: 4 mins; Site: right antecubital; bp 17:10 Follow up: Response: No adverse reaction bp Disposition Summary: 10/05/21 15:47 Discharge Ordered Location: Home pm1 Problem: new pm1 Symptoms: have improved pm1 Condition: Stable pm1 Diagnosis - Diverticulitis of large intestine without perforation or abscess without bleeding pm1 Followup: pm1 - With: Emergency Department - When: As needed - Reason: Worsening of condition Followup: pm1 - With: Private Physician - When: 2 - 3 days - Reason: Recheck today's complaints, Continuance of care, Re-evaluation by your physician Discharge Instructions: - Discharge Summary Sheet pm1 - Clear Liquid Diet, Adult pm1 - Diverticulitis pm1 Forms: - Medication Reconciliation Form pm1 - Thank You Letter pm1 - Antibiotic Education pm1 - Prescription Opioid Use pm1 - Work release form iw Prescriptions: - Flagyl 500 mg Oral Tablet - take 1 tablet by ORAL route every 6 hours for 10 days; 40 tablet; Refills: 0, pm1 Product Selection Permitted - Cipro 500 mg Oral Tablet - take 1 tablet by ORAL route every 12 hours for 10 days; 20 tablet; Refills: 0, pm1 Product Selection Permitted - Tylenol-Codeine #3 300 mg-30 mg Oral - take 2 tablet by ORAL route every 6 hours As needed; 20 tablet; Refills: 0, pm1 Product Selection Permitted Signatures: Dispatcher [employer] EDFabienne Parada, RN MAYRA iw Zach Locke NP PHOTORESIST PRINTER pm1 Martin Nagy RN RN bp
[2021-10-05] MEDS ORDERED: METRONIDAZOLE 500mg IVPB 500 MG/100 ML BAG IV ONE (16:04)
[2021-10-05] MEDS ORDERED: CIPROFLOXACIN HCL 500 MG TAB ONE (16:04)
[2021-10-05 17:45] VITALS: TEMP 99.4
[2021-10-05 17:50] VITALS: BP 125/80; O2SAT 97
== END 2021-10-05 17:12 | disposition home or self-care (01) ==
LOC: ER 12:33
DX: K57.32 Diverticulitis of large intestine without perforation or abscess without bleeding (principal); I10 Essential (primary) hypertension; F17.220 Nicotine dependence, chewing tobacco, uncomplicated
CPT/HCPCS: 96365; 85025; 36415; 81025; 81003; 83690; 80053; 74177; 96375; 99284; Q9967; J7030; J3490; J2405

== ENCOUNTER 2024-01-22 05:14 | Emergency (ER) | payer BC, SELFPAY ==
[2024-01-22] MEDS ORDERED: FAMOTIDINE 20 MG/2 ML VIAL IV ONE (05:21)
[2024-01-22] MEDS ORDERED: METHYLPREDNISOLONE 125 MG INJ ONE (05:21)
[2024-01-22] MEDS ORDERED: DIPHENHYDRAMINE 50 MG/ML VIAL ONE (05:21)
[2024-01-22] MEDS ORDERED: ALBUTEROL 2.5 MG/3 ML NEB SOL ONE (05:21)
[2024-01-22] MEDS ORDERED: NA CHLORIDE 0.9% 1,000 ML ONE ×2 (05:22→08:29)
[2024-01-22 05:45] LABS: Absolute Lymphocytes (CBC) 0.5 K/uL (0.7-4.9); Absolute Monocytes 0.6 K/uL (0.1-1.3); Absolute Neutrophil 22.1 K/uL (1.8-8.0); Hematocrit 42.9 % (36.0-45.0); Hemoglobin 14.3 g/dL (12.0-15.0); MCHC 33.4 g/dL (32.0-36.0); MCV 92.8 fL (80-100); Monocytes % 2.6 % (3.3-12.3); Neutrophils % 95.4 % (41.7-73.7); Platelets 199 thou/uL (152-406); RBC Red Blood Cell Count 4.63 M/uL (3.86-4.86); Red Cell Distribution Width 14.2 % (12.1-15.2)
[2024-01-22 05:55] LABS: ALT/SGPT 16 U/L (13-56); Albumin 3.6 g/dL (3.4-5.0); Alkaline Phosphatase 83 U/L (45-117); Anion Gap 12.4 mEq/L (5.0-15.0); BUN Blood Urea Nitrogen 10 mg/dL (7-18); Bicarbonate 21 mEq/L (21-32); Bilirubin Total 0.7 mg/dL (0.2-1.0); Globulin 3.6 g/dL (2.3-3.5); Glomerular Filtration Rate 73 ml/min (=/>90); Glucose Level 141 mg/dL (74-106); Potassium 3.4 mEq/L (3.5-5.1); Protein, Total 7.2 g/dL (6.4-8.2); Sodium Level 137 mEq/L (136-145)
[2024-01-22 06:05] LABS: AST/SGOT < 10 U/L (15-37)
[2024-01-22] MEDS ORDERED: VANCOMYCIN 1 GM/VIAL ONE (06:37)
[2024-01-22] MEDS ORDERED: MIDAZOLAM HCL IN 0.9 % NACL/PF 100 MG/100 ML BAG IVPB ONE ×2 (06:37→13:05)
[2024-01-22] MEDS ORDERED: propofoL 1,000 MG/100 ML VIAL IV ONE ×3 (06:37→12:58)
[2024-01-22] MEDS ORDERED: CEFTRIAXONE 1000 MG/VIAL ONE (06:37)
[2024-01-22] MEDS ORDERED: NA CHLORIDE 0.9% 250 ML ONE (06:38)
[2024-01-22] MEDS ORDERED: NA CHLORIDE 0.9% 50 ML ONE (06:38)
--- NOTE | 2024-01-22 07:54 | RAD REPORT ---
Procedure: Chest Single View HISTORY: Device placement. Endotracheal tube placement FINDINGS: Tip of an endotracheal tube lies 1.7 cm above the top of the aortic arch. Nasogastric tube within stomach
[2024-01-22] MEDS ORDERED: KCL 20 MEQ/100 mL IVPB 100 ML IV ONE (08:29)
[2024-01-22] MEDS ORDERED: ETOMIDATE 20 MG/10 ML VIAL IV ONE (08:31)
[2024-01-22] MEDS ORDERED: ROCURONIUM 50 MG/5 ML VIAL IV ONE (08:34)
--- NOTE | 2024-01-22 08:46 | RAD REPORT ---
EXAM: Soft Tissue Neck W/Contr INDICATION: Neck pain. Neck swelling. Difficulty breathing. TECHNIQUE: Helical CT examination of the neck [id number] cc Isovue-300 IV contrast. Sagittal and coronal reformations were generated. This exam was performed according to our departmental dose-optimization program, which includes automated exposure control, adjustment of the mA and/or kV according to patient size and/or use of iterative reconstruction technique. COMPARISON: None. FINDINGS: An endotracheal tube has been inserted with the tip just above the level of aortic arch. 6 x 2 cm low-density fluid collection lies deep to the right mandible extending laterally. This proba yarelis represents an abscess. Extensive low density surrounds the nasopharynx, oropharynx and hypopharynx. The trachea is markedly displaced to the left. Nasogastric tube in place. Dental caries is present. IMPRESSION: 6 x 2 cm abscess deep to the right mandible extending laterally and into the right floor of mouth. Extensive low density area throughout the pharynx. It is difficult to determine if this all represent s edema or if there is extension of abscess. Marked displacement of the trachea towards the left.
[2024-01-22 08:48] LABS: Band Neutrophils 4 % (0-1); Blood Morphology Comment NOT SEEN (NOT SEEN); Differential Total Cells Count 100; Lymphocytes 5 % (15-42); Monocytes 5 % (0-10); Platelet Estimate ADEQ; Segmented Neutrophils 86 % (40-80); Toxic Granulation 1+
--- NOTE | 2024-01-22 08:57 | EDPHYS ---
Physician Documentation [facility] Name: Jaquelin Lomax Age: 43 yrs Sex: Female : 1980 Arrival Date: 01/22/2024 Time: 05:14 Bed 3 Private MD: ED Physician Vin Ramos HPI: 01/21 05:20 This 43 yrs old Female presents to ER via Unassigned with complaints of sp4 Trouble breathing, clothing throat . 20:48 43-year-old female presents with worsening neck swelling throat pain and difficulty sp4 breathing. . Historical: - Allergies: 05:07 No Known Allergies; al5 - PMHx: 05:07 Hypertensive disorder; al5 - PSHx: 05:07 section; al5 - Immunization history:: Adult Immunizations up to date. - Infectious Disease History:: Denies. - Social history:: Smoking status: unknown. - Family history:: not pertinent. ROS: 08:56 Constitutional: as per hpi ec2 20:48 Constitutional: Negative for fever, chills, and weight loss, positive for neck pain, sp4 right neck swelling, difficulty breathing, positive for spitting up secretions. 20:48 All other systems are negative, Exam: 08:56 Head/Face: R sided facial swelling ec2 20:48 Constitutional: This is a well developed, well nourished patient who is awake, alert, sp4 moderate distress secondary to pain, right facial right neck swelling. Difficulty handling secretions. Head/Face: Normocephalic, atraumatic. Positive for right neck swelling, positive for right neck tenderness, positive for right facial swelling, positive for submandibular swelling. Eyes: Pupils equal round and reactive to light, extra-ocular motions intact. Lids and lashes normal. Conjunctiva and sclera are not injected. Cornea within normal limits. Periorbital areas with no swelling, redness, or edema. ENT: Nares patent. No nasal discharge, no septal abnormalities noted. Tympanic membranes are normal and external auditory canals are clear. Oropharynx with positive redness, positive trismus, not able to open mouth for full examination. Neck: Trachea midline, no thyromegaly , positive for right neck swelling, positive right submandibular swelling, positive right neck tenderness, Chest/axilla: Normal chest wall appearance and motion. Nontender with no deformity. No lesions are appreciated. Cardiovascular: Regular rate and rhythm with a normal S1 and S2. No gallops, murmurs, or rubs. Normal PMI, no JVD. No pulse deficits. Respiratory: Lungs have equal breath sounds bilaterally, clear to auscultation and percussion. No rales, rhonchi or wheezes noted. No increased work of breathing, no retractions or nasal flaring. Abdomen/GI: Soft, with normal bowel sounds. No distension or tympany. No guarding or rebound. No evidence of tenderness throughout. Back: No spinal tenderness. No costovertebral tenderness. Skin: Warm, dry with normal turgor. Normal color with no rashes, no lesions, and no evidence of cellulitis. MS/ Extremity: Pulses equal, no cyanosis. Neurovascular intact. Full, normal range of motion. Neuro: Awake and alert, GCS 15, oriented to person, place, time, and situation. Cranial nerves II-XII grossly intact. Motor strength 5/5 in all extremities. Sensory grossly intact. Psych: Awake, alert, with orientation to person, place and time. Positive for moderate anxiety Vital Signs: 05:07 BP 149 / 115; Pulse 127; Resp 24; Pulse Ox 100% on R/A; al5 05:07 Weight 81.65 kg; Height 5 ft. 5 in. ; ph 05:30 BP 178 / 101; Pulse 108; Resp 28; Pulse Ox 99% on Nebulizer Mask; al5 06:13 BP 164 / 95; Pulse 99; Resp 23; Pulse Ox 99% on Nebulizer Mask; al5 06:15 BP 157 / 94; Pulse 97; Resp 31; Pulse Ox 99% on Nebulizer Mask; al5 06:30 BP 165 / 97; Pulse 85; Resp 19; Pulse Ox 100% on Nebulizer Mask; al5 06:45 BP 173 / 105; Pulse 72; Resp 25; Pulse Ox 100% on Nebulizer Mask; al5 07:00 BP 160 / 114; Pulse 102; Resp 18; Pulse Ox 100% on ETT ambu; ph 07:15 BP 183 / 107; Pulse 115; Resp 18; Pulse Ox 100% on ETT vent; ph 07:26 BP 188 / 100; Pulse 97; Resp 18; Pulse Ox 100% on ETT vent; ph 07:45 BP 180 / 104; Pulse 95; Resp 18; Pulse Ox 99% on ETT vent; ph 08:00 BP 179 / 108; Pulse 84; Resp 18; Pulse Ox 99% on ETT vent; ph 08:15 BP 148 / 97; Pulse 76; Resp 18; Pulse Ox 99% on ETT vent; ph 08:30 BP 148 / 97; Pulse 76; Resp 18; Pulse Ox 99% on ETT vent; ph 08:44 BP 148 / 97; Pulse 78; Resp 18; Pulse Ox 99% on ETT vent; ph 09:00 BP 142 / 98; Pulse 76; Resp 18; Pulse Ox 99% on ETT vent; ph 09:15 BP 139 / 95; Pulse 76; Resp 18; Pulse Ox 99% on ETT vent; ph 09:29 BP 139 / 95; Pulse 74; Resp 18; Pulse Ox 99% on ETT vent; ph 09:45 BP 145 / 102; Pulse 71; Resp 18; Pulse Ox 100% on ETT vent; ph 10:06 BP 144 / 102; Pulse 71; Resp 18; Pulse Ox 99% on ETT vent; ph 10:14 BP 139 / 95; Pulse 71; Resp 18; Pulse Ox 100% on ETT vent; ph 10:30 BP 140 / 96; Pulse 71; Resp 18; Pulse Ox 99% on ETT vent; ph 10:51 BP 137 / 95; Pulse 70; Resp 18; Pulse Ox 100% on ETT vent; ph 11:00 BP 155 / 99; Pulse 67; Resp 14; Pulse Ox 100% on ETT vent; ph 11:15 BP 154 / 103; Pulse 67; Resp 18; Pulse Ox 100% on ETT vent; ph 11:30 BP 154 / 101; Pulse 66; Resp 14; Pulse Ox 100% on ETT vent; FiO2 24 %; ph 11:45 BP 156 / 103; Pulse 67; Resp 14; Pulse Ox 99% on ETT vent; FiO2 24 %; ph 12:07 BP 156 / 103; Pulse 68; Resp 14; Temp 98.4(A); Pulse Ox 99% on ETT vent; FiO2 24 %; ph 12:30 BP 163 / 101; Pulse 72; Resp 14; Pulse Ox 100% on ETT vent; FiO2 24 %; ph 12:45 BP 158 / 105; Pulse 69; Resp 14; Pulse Ox 100% on ETT vent; FiO2 24 %; ph 13:15 BP 184 / 116; Pulse 72; Resp 14; Pulse Ox 99% on ETT vent; FiO2 24 %; ph 05:07 Body Mass Index 29.95 (81.65 kg, 165.1 cm) ph Eric Coma Score: 20:48 Eye Response: spontaneous(4). Motor Response: obeys commands(6). Verbal Response: sp4 oriented(5). Total: 15. Procedures: 07:03 Intubation: Ventilated with 100% NRB prior to procedure. O2 saturation prior to sp4 procedure was 99 %. Intubated orally using S4 Glyde scope intubation with 7.5 mm ETT. was successful on first attempt. Ventilated with Ambu bag. ventilator. Tube secured with ETT mathur at center of mouth measured 23 cm at lip. Placement verified by CXR, CO2 detector with (+) color change, auscultating bilateral breath sounds, O2 saturation after procedure was 100 %. Patient tolerated well, Intubated for airway protection . MDM: 05:21 Medical Screening Exam initiated sp4 07:12 Transition of care: Care assumed from Ronald Rosenthal MD. ED course: Patient signed ec2 out to me by previous physician, in brief arrives today for evaluation of neck swelling and concern for possible neck infection. Patient was intubated prior to my arrival. Plans to follow-up lab work and CT imaging.. 07:13 ED course: Patient signed out to me with pending CT imaging. In brief patient arrives ec2 today due to concern for neck swelling, was intubated prior to my arrival. Workup was revealing for a hypertensive and tachycardic individual who is tachypneic with a leukocytosis of 22. Metabolic profile shows slight hypokalemia. Lactic acid within normal ranges.. 08:51 Data reviewed: vital signs, nurses notes. ED course: CBC shows leukocytosis. CT scan of ec2 the neck shows concern for 6 x 2 cm deep abscess to the right mandible extending to the floor of the mouth with associated edema throughout the pharynx along with leftward shift of the trachea.. 08:54 ED course: Due to lack of ICU capabilities at our hospital today, will transfer the ec2 patient for ICU cares as well as ENT consultation.. 09:11 ED course: On reassessment patient breathing comfortably on the ventilator, family ec2 updated regarding plan of care.. 09:59 ED course: I discussed case with ENT at [facility] who declines ec2 patient, feels OMFS needs to be involved which they do not have. 10:30 ED course: Discussed case with OMFS at [facility] who agrees to accept pt for ec2 transfer. 20:45 Differential Diagnosis altered mental status, sepsis, flu, Neck abscess . Consideration sp4 of Admission/Observation Escalation of care including admission/observation considered. ED course: Chest X ray after Intubation - Procedure: Chest Single View HISTORY: Device placement. Endotracheal tube placement FINDINGS: Tip of an endotracheal tube lies 1.7 cm above the top of the aortic arch. Nasogastric tube within stomach . 20:45 ED course: EXAM: Soft Tissue Neck W/Contr INDICATION: Neck pain. Neck swelling. sp4 Difficulty breathing. TECHNIQUE: Helical CT examination of the neck [id number] IV contrast. Sagittal and coronal reformations were generated. This exam was performed according to our departmental dose-optimization program, which includes automated exposure control, adjustment of the mA and/or kV according to patient size and/or use of iterative reconstruction technique. COMPARISON: None. FINDINGS: An endotracheal tube has been inserted with the tip just above the level of aortic arch. 6 x 2 cm low-density fluid collection lies deep to the right mandible extending laterally. This probably represents an abscess. Extensive low density surrounds the nasopharynx, oropharynx and hypopharynx. The trachea is markedly displaced to the left. Nasogastric tube in place. Dental caries is present. IMPRESSION: 6 x 2 cm abscess deep to the right mandible extending laterally and into the right floor of mouth. Extensive low density area throughout the pharynx. It is difficult to determine if this all represents edema or if there is extension of abscess. Marked displacement of the trachea towards the left.. 20:48 ED course: Patient felt worse after breathing treatments and show could not lay still sp4 for CT of the neck. Patient also has highly elevated white count. Examination consistent with developing abscess over the neck. Decision was made to intubate to protect airway and then to send patient for a stat CT soft tissue neck with IV contrast. After successful intubation patient's care was transferred to Dr. Ramos for further disposition. 01/21 05:21 Order name: CBC with Diff; Complete Time: 08:51 sp4 01/21 05:21 Order name: CMP; Complete Time: 06:19 sp4 01/21 06:19 Order name: Blood Culture Adult (2) 4 01/21 06:19 Order name: Lactate w/ 2H reflex if indic.; Complete Time: 07:03 sp4 01/21 08:49 Order name: Manual Differential; Complete Time: 08:51 EDMS 01/21 06:19 Order name: CT Soft Tissue Neck W/contr; Complete Time: 08:51 sp4 01/21 07:18 Order name: Chest Single View XRAY; Complete Time: 08:51 sp4 01/21 05:21 Order name: IV Saline Lock; Complete Time: 05:29 4 01/21 05:21 Order name: Labs collected and sent; Complete Time: 05:29 sp4 01/21 06:18 Order name: Intubation Setup; Complete Time: 07:30 4 01/21 07:18 Order name: NG Tube; Complete Time: 07:30 4 01/21 07:18 Order name: Melgoza Leg Bag; Complete Time: 10:51 sp4 Administered Medications: 05:28 Drug: MethylPrednisoLONE IVP 125 mg IVP once Route: IVP; Site: right antecubital; al5 06:10 Follow up: Response: No adverse reaction; No change in condition al5 05:28 Drug: NS 0.9% IV 1000 ml IV at 1000 ml once; to be given as a bolus over 60 minutes al5 Route: IV; Rate: 1000 ml; Site: right antecubital; 06:58 Follow up: Response: No adverse reaction; IV Status: Completed infusion; IV Intake: al5 1000ml 05:28 Drug: Famotidine IVP 20 mg IVP once; dilute with 10 mL 0.9% NaCl; give over 2 minutes al5 Route: IVP; Site: right antecubital; 06:09 Follow up: Response: No adverse reaction; No change in condition al5 05:28 Drug: Albuterol Inhalation 2.5 mg Inhalation once Route: Inhalation; al5 06:09 Follow up: Response: No adverse reaction; No change in condition al5 05:29 Drug: diphenhydrAMINE IVP 50 mg IVP once Route: IVP; Site: right antecubital; al5 06:10 Follow up: Response: No adverse reaction; No change in condition al5 06:40 Drug: Rocephin - Rocephin (cefTRIAXone) IVPB 1 grams IVPB once over 30 mins; (mix in 50 al5 mL NS) Route: IVPB; Infused Over: 30 mins; Site: right antecubital; 07:12 Follow up: Response: No adverse reaction; IV Status: Completed infusion; IV Intake: al5 100ml 06:56 Drug: Etomidate IVP 20 mg IVP once Route: IVP; Site: left antecubital; al5 07:15 Follow up: Response: No adverse reaction ph 06:58 Drug: Midazolam IVP or IV 5 mg IVP once Route: IVP; Site: left antecubital; al5 07:15 Follow up: Response: No adverse reaction ph 06:58 Drug: Rocuronium IVP 100 mg IVP once Route: IVP; Site: left antecubital; al5 07:30 Follow up: Response: No adverse reaction ph 07:00 Drug: Propofol IV 5 mcg/kg/min IV at calculated rate See Administration Instructions; al5 Standard concentration 1000 mg / 100 mL; Recommended max rate 50 mcg/kg/min; Titrate 5 mcg/kg/min every 5 minutes to achieve goal (see titration policy); Goal parameter RASS score 0 to -2 Route: IV; Rate: calculated rate; Site: left antecubital; 07:15 Follow up: Response: RASS: Light sedation (-2); Rate change 10 mcg/kg/min ph 07:30 Follow up: Response: RASS: Light sedation (-2); Rate change 15 mcg/kg/min ph 07:45 Follow up: Rate change 20 mcg/kg/min ph 08:15 Follow up: Response: RASS: Light sedation (-2); Rate change 25 mcg/kg/min ph 08:30 Follow up: Response: No adverse reaction; RASS: Light sedation (-2); Rate change 35 ph mcg/kg/min 09:15 Follow up: Response: RASS: Light sedation (-2); Rate change 40 mcg/kg/min ph 10:30 Follow up: Response: No adverse reaction; RASS: Light sedation (-2); Rate change 50 ph mcg/kg/min 12:19 Follow up: Response: No adverse reaction; RASS: Light sedation (-2); IV Status: ph Infusion continued upon transfer 07:25 Drug: Midazolam IVP or IV 0.01 mg/kg/h IV at calculated rate See Administration ph Instructions; (Standard concentration: 100 mg / 100 mL NS); Recommended max rate 0.1 mg/kg/hr; Titrate 0.01 mg/kg/hr as often as every 30 minutes to achieve goal (see titration policy); Goal parameter RASS 0 to -2 Route: IV; Rate: calculated rate; Site: right antecubital; 12:20 Follow up: Response: No adverse reaction; RASS: Light sedation (-2); IV Status: ph Infusion continued upon transfer 07:25 Drug: vancoMYCIN IVPB 1 grams IVPB once over 2 hrs Route: IVPB; Infused Over: 2 hrs; ph Site: right hand; 09:30 Follow up: Response: No adverse reaction; IV Status: Completed infusion; IV Intake: ph 250ml 08:43 Drug: Potassium Chloride IV 20 mEq IV at calculated rate once; administer over 1-2 ph hours Route: IV; Rate: calculated rate; Site: right antecubital; 10:45 Follow up: Response: No adverse reaction; IV Status: Completed infusion ph 08:44 Drug: NS 0.9% IV 1000 ml IV at 125 ml/hr continuous Route: IV; Rate: 125 ml/hr; Site: right antecubital; 12:15 Follow up: Response: No adverse reaction; IV Status: Infusion continued upon transfer ph 09:50 Drug: metroNIDAZOLE IVPB 500 mg 100 ml IVPB at 200 ml/hr once over 30 mins Volume: 100 ph ml; Route: IVPB; Rate: 200 ml/hr; Infused Over: 30 mins; Site: right hand; 10:20 Follow up: Response: No adverse reaction; IV Status: Completed infusion ph Disposition Summary: 01/22/24 08:56 Transfer Ordered Notes: Transfer Location: [facility] ec2 Reason: Higher level of care ec2 Condition: Serious ec2 Problem: new ec2 Symptoms: have improved ec2 Accepting Physician: transferring doc(01/22/24 14:04) ph Diagnosis - Severe sepsis without septic shock ec2 - Deep Neck Abscess, 6x2cm ec2 - Displaced Trachea ec2 - Respiratory Failure ec2 Forms: - Medication Reconciliation Form ec2 - SBAR form ec2 Critical care time excluding procedures: 08:54 Critical care time: Bedside Care: 30 minutes, Consultation: 10 minutes. Total time: 40 ec2 minutes Signatures: Dispatcher [employer] Radha Vegas, RN RN Ronald Wooten MD MD sp4 Vin Ramos MD MD ec2 Janine Conde RN RN al5 Corrections: (The following items were deleted from the chart) 05:21 05:21 CBC+H.LAB.BRZ ordered. EDMS EDMS 05:21 05:21 COMPREHENSIVE METABOLIC PANEL+C.LAB.BRZ ordered. EDMS EDMS 06:00 05:07 PSHx: None; al5 al5 11:29 10:30 ED course: Discussed case with OMFS as well as admittance attendant at [facility].. ec2ec2 14:04 08:56 transferring doc ec2 ph
--- NOTE | 2024-01-22 08:57 | ER ---
Nurse's Notes [facility] Name: Jaquelin Lomax Age: 43 yrs Sex: Female : 1980 Arrival Date: 01/22/2024 Time: 05:14 Bed 3 Private MD: Diagnosis: Severe sepsis without septic shock;Deep Neck Abscess, 6x2cm;Displaced Trachea;Respiratory Failure Presentation: 01/21 05:07 Chief complaint: Patient states: states she was being treated for tooth pain with al5 gabapentin on Saturday, woke up that next morning and had swelling to the face. patient was admitted in [place], [facility] early before she could get her steroids. facial swelling had initially went down, but has now gotten worse to where patient is having difficulty swallowing. 05:07 Coronavirus screen: At this time, the client does not indicate any symptoms associated al5 with coronavirus-19. Ebola Screen: No symptoms or risks identified at this time. Initial Sepsis Screen: Does the patient meet any 2 criteria? No. Patient's initial sepsis screen is negative. Does the patient have a suspected source of infection? No. Patient's initial sepsis screen is negative. Risk Assessment: Do you want to hurt yourself or someone else? Patient reports no desire to harm self or others. Onset of symptoms was January 16, 2024. 05:07 Method Of Arrival: Wheelchair al5 05:07 Acuity: HOANG 2 al5 Historical: - Allergies: 05:07 No Known Allergies; al5 - PMHx: 05:07 Hypertensive disorder; al5 - PSHx: 05:07 section; al5 - Immunization history:: Adult Immunizations up to date. - Infectious Disease History:: Denies. - Social history:: Smoking status: unknown. - Family history:: not pertinent. Screenin:29 [facility] ED Fall Risk Assessment (Adult) History of falling in the last 3 months, al5 including since admission No falls in past 3 months (0 pts) Confusion or Disorientation No (0 pts) Intoxicated or Sedated No (0 pts) Impaired Gait No (0 pts) Mobility Assist Device Used No (0 pt) Altered Elimination No (0 pt) Score/Fall Risk Level 0 - 2 = Low Risk Oriented to surroundings, Maintained a safe environment, Hourly rounding (assess needs \T\ fall precautionary measures) done. Abuse screen: Denies threats or abuse. Denies injuries from another. Nutritional screening: No deficits noted. Tuberculosis screening: No symptoms or risk factors identified. Assessment: 05:07 General: having allergic reaction to gabapentin.. General: Appears distressed, al5 uncomfortable, Behavior is cooperative, anxious. Pain: Complains of pain in right jaw. Neuro: Level of Consciousness is awake, alert, obeys commands, Oriented to person, place, time, situation. Cardiovascular: Capillary refill < 3 seconds Patient's skin is warm and dry. Respiratory: Reports shortness of breath Airway obstructed, Trachea midline Respiratory effort is even, labored, Respiratory pattern is regular, symmetrical. GI: No signs and/or symptoms were reported involving the gastrointestinal system. : No signs and/or symptoms were reported regarding the genitourinary system. EENT: No signs and/or symptoms were reported regarding the EENT system. Derm: Skin is intact, is healthy with good turgor, Skin is pink, warm \T\ dry. normal. Musculoskeletal: No signs and/or symptoms reported regarding the musculoskeletal system. 05:27 Reassessment: Patient appears in no apparent distress at this time. No changes from al5 previously documented assessment. Patient and/or family updated on plan of care and expected duration. Pain level reassessed. patient request drinking water, patient educated on importance of staying NPO until patient no longer risk for aspiration. patient verbalized understanding. 06:10 Reassessment: No changes from previously documented assessment. Patient and/or family al5 updated on plan of care and expected duration. Pain level reassessed. Patient states symptoms have not improved. patient states that she feels like swelling has increased and is becoming a little difficult to breathe, notified MD. LOBATO at bedside.. 06:54 Reassessment: No changes from previously documented assessment. Patient and/or family al5 updated on plan of care and expected duration. Pain level reassessed. patient being prepared for intubation at this time. 07:00 Reassessment: patient intubated at this time. patient has 7.5 ET tube measuring 23 at al5 the lip. confirmed at this time with co2 detector. 07:15 General: Appears in no apparent distress. well groomed, Behavior is unresponsive. ph intubated and sedated. Pain: Unable to use pain scale. Patient is unresponsive. Neuro: [place] Agitation-Sedation Scale (RASS): -3 Moderate Sedation Pupils are PERRLA. Cardiovascular: Capillary refill < 3 seconds in bilateral fingers Patient's skin is warm and dry. Rhythm is sinus rhythm. Respiratory: Airway via oral intubation Respiratory effort is unlabored, Respiratory pattern is symmetrical, Ventilator assessment: ET Tube: 7.5 23 cm at lip. HOB > 30 degrees. Suction provided. GI: Abdomen is non-distended, Oral gastric tube to suction. Derm: Skin is pink, warm \T\ dry. Musculoskeletal: Swelling present in right jaw. 09:00 Reassessment: Patient appears in no apparent distress at this time. No changes from ph previously documented assessment. Patient and/or family updated on plan of care and expected duration. Pain level reassessed. 11:00 Reassessment: Patient appears in no apparent distress at this time. No changes from ph previously documented assessment. Patient and/or family updated on plan of care and expected duration. Pain level reassessed. 12:30 Reassessment: Report called to Caroline NUNEZ at [facility] ICU. ph 13:20 Reassessment: Patient appears in no apparent distress at this time. No changes from ph previously documented assessment. Patient and/or family updated on plan of care and expected duration. Pain level reassessed. [facility] at bedside, report given To RANDALL Alcantar-P. Vital Signs: 05:07 BP 149 / 115; Pulse 127; Resp 24; Pulse Ox 100% on R/A; al5 05:07 Weight 81.65 kg; Height 5 ft. 5 in. ; ph 05:30 BP 178 / 101; Pulse 108; Resp 28; Pulse Ox 99% on Nebulizer Mask; al5 06:13 BP 164 / 95; Pulse 99; Resp 23; Pulse Ox 99% on Nebulizer Mask; al5 06:15 BP 157 / 94; Pulse 97; Resp 31; Pulse Ox 99% on Nebulizer Mask; al5 06:30 BP 165 / 97; Pulse 85; Resp 19; Pulse Ox 100% on Nebulizer Mask; al5 06:45 BP 173 / 105; Pulse 72; Resp 25; Pulse Ox 100% on Nebulizer Mask; al5 07:00 BP 160 / 114; Pulse 102; Resp 18; Pulse Ox 100% on ETT ambu; ph 07:15 BP 183 / 107; Pulse 115; Resp 18; Pulse Ox 100% on ETT vent; ph 07:26 BP 188 / 100; Pulse 97; Resp 18; Pulse Ox 100% on ETT vent; ph 07:45 BP 180 / 104; Pulse 95; Resp 18; Pulse Ox 99% on ETT vent; ph 08:00 BP 179 / 108; Pulse 84; Resp 18; Pulse Ox 99% on ETT vent; ph 08:15 BP 148 / 97; Pulse 76; Resp 18; Pulse Ox 99% on ETT vent; ph 08:30 BP 148 / 97; Pulse 76; Resp 18; Pulse Ox 99% on ETT vent; ph 08:44 BP 148 / 97; Pulse 78; Resp 18; Pulse Ox 99% on ETT vent; ph 09:00 BP 142 / 98; Pulse 76; Resp 18; Pulse Ox 99% on ETT vent; ph 09:15 BP 139 / 95; Pulse 76; Resp 18; Pulse Ox 99% on ETT vent; ph 09:29 BP 139 / 95; Pulse 74; Resp 18; Pulse Ox 99% on ETT vent; ph 09:45 BP 145 / 102; Pulse 71; Resp 18; Pulse Ox 100% on ETT vent; ph 10:06 BP 144 / 102; Pulse 71; Resp 18; Pulse Ox 99% on ETT vent; ph 10:14 BP 139 / 95; Pulse 71; Resp 18; Pulse Ox 100% on ETT vent; ph 10:30 BP 140 / 96; Pulse 71; Resp 18; Pulse Ox 99% on ETT vent; ph 10:51 BP 137 / 95; Pulse 70; Resp 18; Pulse Ox 100% on ETT vent; ph 11:00 BP 155 / 99; Pulse 67; Resp 14; Pulse Ox 100% on ETT vent; ph 11:15 BP 154 / 103; Pulse 67; Resp 18; Pulse Ox 100% on ETT vent; ph 11:30 BP 154 / 101; Pulse 66; Resp 14; Pulse Ox 100% on ETT vent; FiO2 24 %; ph 11:45 BP 156 / 103; Pulse 67; Resp 14; Pulse Ox 99% on ETT vent; FiO2 24 %; ph 12:07 BP 156 / 103; Pulse 68; Resp 14; Temp 98.4(A); Pulse Ox 99% on ETT vent; FiO2 24 %; ph 12:30 BP 163 / 101; Pulse 72; Resp 14; Pulse Ox 100% on ETT vent; FiO2 24 %; ph 12:45 BP 158 / 105; Pulse 69; Resp 14; Pulse Ox 100% on ETT vent; FiO2 24 %; ph 13:15 BP 184 / 116; Pulse 72; Resp 14; Pulse Ox 99% on ETT vent; FiO2 24 %; ph 05:07 Body Mass Index 29.95 (81.65 kg, 165.1 cm) ph Vitals: 07:26 Cardiac Rhythm Assessment Regular. ph [place] Coma Score: 20:48 Eye Response: spontaneous(4). Motor Response: obeys commands(6). Verbal Response: sp4 oriented(5). Total: 15. ED Course: 05:20 Patient arrived in ED. vc1 05:20 Ronald Rosenthal MD is Attending Physician. sp4 05:24 Inserted saline lock: 20 gauge in right antecubital area, using aseptic technique. al5 Blood collected. Flushed with 10 mL NS. 05:24 No provider procedures requiring assistance completed. al5 05:28 Janine Conde RN is Primary Nurse. al5 05:29 Provided Education on: plan of care, medications. al5 05:29 Bed in low position. Call light in reach. Side rails up X2. al5 05:29 Arm band placed on right wrist. Patient placed in the treatment room, on a stretcher. al5 05:59 Triage completed. al5 07:00 Inserted saline lock: 20 gauge in left antecubital area, using aseptic technique. ph Flushed with 10 mL NS. 07:05 NGT: inserted 16 Fr. other via oral route verified placement of air over stomach, ph verified return of gastric contents, to intermittent suction. Returned gastric contents. 07:10 Attending Physician role handed off by Ronald Rosenthal MD ec2 07:10 Vin Ramos MD is Attending Physician. ec2 07:20 Inserted saline lock: 22 gauge in right hand, using aseptic technique. Flushed with 10 ph mL NS. 07:33 Chest Single View XRAY In Process Unspecified. EDMS 08:21 CT Soft Tissue Neck W/contr In Process Unspecified. EDMS 09:06 initiated transfer to [facility]. bd 10:14 Primary Nurse role handed off by Janine Conde, MAYRA ph 10:14 Radha Thompson, MAYRA is Primary Nurse. ph 10:26 pt not accepted by ENT at [facility],pt needs maxilofacial which is not available at [facility]. initiated transfer to [facility]. 10:45 Melgoza cath inserted, using sterile technique, 16 Fr., by wy, balloon inflated, to ty gravity drainage. 10:45 pt ...[phone]. bd 10:52 Patient transferred, IV remains in place. ph 11:38 pt accepted in transfer to [facility] by Dr Marquez admin approval given bd by Niki Leos RN,pt going to 8 D [id number]. will be transported by [facility]. Administered Medications: 05:28 Drug: MethylPrednisoLONE IVP 125 mg IVP once Route: IVP; Site: right antecubital; al5 06:10 Follow up: Response: No adverse reaction; No change in condition al5 05:28 Drug: NS 0.9% IV 1000 ml IV at 1000 ml once; to be given as a bolus over 60 minutes al5 Route: IV; Rate: 1000 ml; Site: right antecubital; 06:58 Follow up: Response: No adverse reaction; IV Status: Completed infusion; IV Intake: al5 1000ml 05:28 Drug: Famotidine IVP 20 mg IVP once; dilute with 10 mL 0.9% NaCl; give over 2 minutes al5 Route: IVP; Site: right antecubital; 06:09 Follow up: Response: No adverse reaction; No change in condition al5 05:28 Drug: Albuterol Inhalation 2.5 mg Inhalation once Route: Inhalation; al5 06:09 Follow up: Response: No adverse reaction; No change in condition al5 05:29 Drug: diphenhydrAMINE IVP 50 mg IVP once Route: IVP; Site: right antecubital; al5 06:10 Follow up: Response: No adverse reaction; No change in condition al5 06:40 Drug: Rocephin - Rocephin (cefTRIAXone) IVPB 1 grams IVPB once over 30 mins; (mix in 50 al5 mL NS) Route: IVPB; Infused Over: 30 mins; Site: right antecubital; 07:12 Follow up: Response: No adverse reaction; IV Status: Completed infusion; IV Intake: al5 100ml 06:56 Drug: Etomidate IVP 20 mg IVP once Route: IVP; Site: left antecubital; al5 07:15 Follow up: Response: No adverse reaction ph 06:58 Drug: Midazolam IVP or IV 5 mg IVP once Route: IVP; Site: left antecubital; al5 07:15 Follow up: Response: No adverse reaction ph 06:58 Drug: Rocuronium IVP 100 mg IVP once Route: IVP; Site: left antecubital; al5 07:30 Follow up: Response: No adverse reaction ph 07:00 Drug: Propofol IV 5 mcg/kg/min IV at calculated rate See Administration Instructions; al5 Standard concentration 1000 mg / 100 mL; Recommended max rate 50 mcg/kg/min; Titrate 5 mcg/kg/min every 5 minutes to achieve goal (see titration policy); Goal parameter RASS score 0 to -2 Route: IV; Rate: calculated rate; Site: left antecubital; 07:15 Follow up: Response: RASS: Light sedation (-2); Rate change 10 mcg/kg/min ph 07:30 Follow up: Response: RASS: Light sedation (-2); Rate change 15 mcg/kg/min ph 07:45 Follow up: Rate change 20 mcg/kg/min ph 08:15 Follow up: Response: RASS: Light sedation (-2); Rate change 25 mcg/kg/min ph 08:30 Follow up: Response: No adverse reaction; RASS: Light sedation (-2); Rate change 35 ph mcg/kg/min 09:15 Follow up: Response: RASS: Light sedation (-2); Rate change 40 mcg/kg/min ph 10:30 Follow up: Response: No adverse reaction; RASS: Light sedation (-2); Rate change 50 ph mcg/kg/min 12:19 Follow up: Response: No adverse reaction; RASS: Light sedation (-2); IV Status: ph Infusion continued upon transfer 07:25 Drug: Midazolam IVP or IV 0.01 mg/kg/h IV at calculated rate See Administration ph Instructions; (Standard concentration: 100 mg / 100 mL NS); Recommended max rate 0.1 mg/kg/hr; Titrate 0.01 mg/kg/hr as often as every 30 minutes to achieve goal (see titration policy); Goal parameter RASS 0 to -2 Route: IV; Rate: calculated rate; Site: right antecubital; 12:20 Follow up: Response: No adverse reaction; RASS: Light sedation (-2); IV Status: ph Infusion continued upon transfer 07:25 Drug: vancoMYCIN IVPB 1 grams IVPB once over 2 hrs Route: IVPB; Infused Over: 2 hrs; ph Site: right hand; 09:30 Follow up: Response: No adverse reaction; IV Status: Completed infusion; IV Intake: ph 250ml 08:43 Drug: Potassium Chloride IV 20 mEq IV at calculated rate once; administer over 1-2 ph hours Route: IV; Rate: calculated rate; Site: right antecubital; 10:45 Follow up: Response: No adverse reaction; IV Status: Completed infusion ph 08:44 Drug: NS 0.9% IV 1000 ml IV at 125 ml/hr continuous Route: IV; Rate: 125 ml/hr; Site: ph right antecubital; 12:15 Follow up: Response: No adverse reaction; IV Status: Infusion continued upon transfer ph 09:50 Drug: metroNIDAZOLE IVPB 500 mg 100 ml IVPB at 200 ml/hr once over 30 mins Volume: 100 ph ml; Route: IVPB; Rate: 200 ml/hr; Infused Over: 30 mins; Site: right hand; 10:20 Follow up: Response: No adverse reaction; IV Status: Completed infusion ph Medication: 05:30 VIS not applicable for this client. al5 Intake: 06:58 IV: 1000ml; Total: 1000ml. al5 07:12 IV: 100ml; Total: 1100ml. al5 09:30 IV: 250ml; Total: 1350ml. ph Outcome: 08:56 ER care complete, transfer ordered by . ec2 14:04 Transferred by ground [facility]. to [facility], Transfer ph form completed. X-rays sent w/ patient. 14:04 Condition: stable 14:04 Instructed on the need for transfer, 14:04 Patient left the ED. ph Signatures: Dispatcher [employer] Vianca Luciano Patricia, RN RN ph Ivanna Dias RN RN 1 Ronald Rosenthal MD MD sp4 Vin Ramos MD MD ec2 Benjy Cope Amanda, RN RN al5 Corrections: (The following items were deleted from the chart) 06:00 05:07 PSHx: None; al5 al5 06:04 06:01 General: Appears distressed, uncomfortable, Behavior is cooperative, anxious, al5 al5 06:04 06:01 Neuro: Level of Consciousness is awake, alert, obeys commands, Oriented to al5 person, place, time, situation, al5 : 06:01 Cardiovascular: Capillary refill < 3 seconds Patient's skin is warm and dry. al5 al5 06:04 06:01 Respiratory: Reports shortness of breath Airway obstructed, Trachea midline al5 Respiratory effort is even, labored, Respiratory pattern is regular, symmetrical, al5 : 06:01 GI: No signs and/or symptoms were reported involving the gastrointestinal system. al5 al5 06:04 06:01 : No signs and/or symptoms were reported regarding the genitourinary system. al5al5 : 06:01 EENT: No signs and/or symptoms were reported regarding the EENT system. al5 al5 06:04 06:01 Derm: Skin is intact, is healthy with good turgor, Skin is pink, warm \T\ dry. al5 normal, al5 06:04 06:01 Musculoskeletal: No signs and/or symptoms reported regarding the musculoskeletal al5 system. al5 :04 06:01 Pain: Complains of pain in right jaw al5 al5 :04 06:01 General: having allergic reaction to gabapentin.. al5 al5 07:24 05:58 Reassessment: No changes from previously documented assessment. Patient and/or al5 family updated on plan of care and expected duration. Pain level reassessed. Patient states symptoms have not improved. patient states that she feels like swelling has increased and is becoming a little difficult to breathe, notified . at bedside.. al5 08:31 05:07 78.47 kg; Height 5 ft. 5 in.; BMI: 28.7; al5 ph
[2024-01-22] MEDS ORDERED: METRONIDAZOLE 500mg IVPB 500 MG/100 ML BAG IV ONE (09:49)
[2024-01-22 15:31] VITALS: TEMP 98.4
[2024-01-22 15:35] VITALS: BP 184/116; O2SAT 99
== END 2024-01-22 14:04 | disposition short-term general hospital (02) ==
LOC: ER 05:14
DX: J96.90 Respiratory failure, unspecified, unspecified whether with hypoxia or hypercapnia (principal); R65.20 Severe sepsis without septic shock; L02.11 Cutaneous abscess of neck; J39.8 Other specified diseases of upper respiratory tract; I10 Essential (primary) hypertension
CPT/HCPCS: 36415; 70491; 71045; 80053; 83605; 85025; 87040; 94002; J0696; J1200; J2250; J2704; J2919; J3480; J7030; J7050; J7613; Q9967